=== PATIENT | female | born 1930 | race African-American/Black ===

== ENCOUNTER 2016-08-27 14:39 | Inpatient (IN) | payer MEDICAID, MEDICARE ==
[~2016-08-27] VITALS: Ht 142.2 cm; Wt 45.4 kg
[~2016-08-27 14:39] MED LIST: ACETAMINOPHEN325 M1 ORAL; ACIDOPHILUS PROB1 MG PO; ALPRAZOLAM0.5 M2 ORAL; AMBIEN5 MG ORAL; AMLODIPINE BES2.5 MG ORAL; AMLODIPINE BESY10 MG ORAL; AUGMENTIN 875-1 EAC1 GT; BACTRIM-DS1 EA ORAL; BENAZEPRIL HCL10 MG GT; BENAZEPRIL HCL10 MG ORAL; BIOTIN2500 MCG PO; CALCIUM 500 +1 EAC7 PO; CEFEPIME-D1 GM/50 ML IVPB; CIPRO500 MG PO; CRANBERRY 6,001 EACH PO; ENZYME DIGEST1 EACH PO; FERROUS SULFAT325 MG ORAL; GARLIC200 MG PO; IRON18 M1 PO; KEPPRA500 M3 ORAL; LEVAQUIN500 MG GT; LORAZEPAM1 MG ORAL; LUPRON DEPOT3.75 M1 IM; METRONIDAZOLE500 MG ORAL; MIRALAX17 GM ORAL; MULTIVITAMINS1 EA11 PO; NORCO 7.5-3251 EACH ORAL; NUTREN GT; OMEPRAZOLE20 M2 ORAL; PROMETHAZI6.25 MG/1 ORAL; PROTEIN POWDER454 GM PO; RANITIDINE HCL150 MG ORAL; SENNA LAXATIVE1 EAC1 PO; VANCOMYCIN1 GM/2502 IVPB; VICODIN ES 7.51 EACH ORAL; VITAMIN B12-FO1 EAC1 PO; VITAMIN C500 M1 ORAL; XANAX0.5 MG ORAL; ZINC50 MG ORAL; ZOLPIDEM TARTRAT5 MG ORAL; [UNRECOGNIZED DRUG - CODE] PO; [UNRECOGNIZED DRUG - OTHER] GT
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
[2016-08-27] MEDS ORDERED: DuoNeb 0.5-3(2.5)mg/3ml neb ONE (15:15)
[2016-08-27] MEDS ORDERED: DuoNeb 0.5-3(2.5)mg/3ml neb HHN ONE (15:30)
[2016-08-27 15:55] LABS: APPEARANCE,URINE SLIGHTLY CLOUDY; KETONES,URINE 1+ (NEGATIVE); LEUKOCYTE ESTERASE ,URINE 3+ (NEGATIVE); NITRITE,URINE POSITIVE (NEGATIVE); PH,URINE 5 (4.5-8.0); PROTEIN,URINE 2+ (NEGATIVE); UROBILINOGEN,URINE 1 MG/DL (0.0-1.0)
[2016-08-27] MEDS ORDERED: Heparin 2000 units/Ns 1000ml IV ONE (16:00)
[2016-08-27] MEDS ORDERED: Lidocaine 1% Plain 30 ml INJ ONE (16:00)
[2016-08-27 16:01] VITALS: BP 124/55
[2016-08-27 16:02] LABS: RBC,URINE 15-20 /HPF (0 - 2)
[2016-08-27 16:03] LABS: BACTERIA,URINE MANY /HPF; SQUAMOUS EPITHELIAL CELL,UR MANY /LPF (NONE/OCC); WBC,URINE 20-30 /HPF (0 - 2)
--- NOTE | 2016-08-27 16:58 | Diagnostic Imaging Report ---
Indication: Dyspnea Comparison: 04/13/16 A single view chest radiograph was obtained. Findings: No definite infiltrate or pulmonary vascular congestion identified. The heart is normal in size. The aorta is mildly enlarged consistent with atherosclerotic vascular disease. The bones are osteopenic. Impression: No acute disease
--- NOTE | 2016-08-27 16:58 | Diagnostic Imaging Report ---
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 The right upper extremity was prepped with alcohol. All elements of maximal sterile barrier technique were followed including usage of a cap, mask, sterile gown, sterile gloves, hand hygiene and a large sterile sheet. Sonographic evaluation of the upper extremity was performed demonstrating a patent and compressible basilic vein. Access was obtained under real-time ultrasound guidance and digital image was saved and archived. An .018 wire was introduced. Needle exchanged for a 5 [place] peel-away sheath. Measurements were obtained. A 5 [place] dual-lumen Power PICC line catheter was cut to 10 cm and introduced over the wire. Peel-away sheath and wire were removed.Catheter was secured to the skin using 2-0 Prolene suture. Both ports aspirate and flush easily. Fluoroscopic Images show distal tip in the right axillary vein. Total fluoroscopic time 1.3 minutes. Repeated attempts at passing the catheter beyond the axillary vein were unsuccessful. Impression: Successful placement of an upper extremity PICC line catheter within a peripheral vein. Catheter is cleared for peripheral use.
[2016-08-27 17:27] LABS: BASOPHILS % (AUTO) 0.7 % (0.0-2.0); EOSINOPHILS % (AUTO) 0.1 % (0.0-3.0); MEAN CORPUSCULAR HEMOGLOBIN 23.7 PG (27.0-31.0); MEAN CORPUSCULAR HGB CONC 28.7 G/DL (32.0-36.0); MEAN CORPUSCULAR VOLUME 83 FL (80-99); MEAN PLATELET VOLUME 9.2 FL (6.5-10.1); NEUTROPHILS % (AUTO) 81.1 % (45.0-75.0); PLATELET COUNT 156 K/UL (150-450); RED BLOOD COUNT 4.28 M/UL (4.20-5.40); RED CELL DISTRIBUTION WIDTH 13.2 % (11.6-14.8)
[2016-08-27 17:41] LABS: ALANINE AMINOTRANSFERASE 12 U/L (3-33); ALBUMIN/GLOBULIN RATIO 0.9 (1.0-2.7); ANION GAP 15 (5-15); ASPARTATE AMINO TRANSFERASE 17 U/L (5-40); CALCIUM 8.9 mg/dL (8.6-10.2); CARBON DIOXIDE 28 mEQ/L (20-30); CHLORIDE 99 mEQ/L (98-107); CREATININE 0.7 mg/dL (0.5-0.9); HEMOLYSIS 0; POTASSIUM 3.4 mEQ/L (3.4-4.9); SODIUM 142 mEQ/L (135-145); TOTAL PROTEIN 7.3 g/dL (6.6-8.7); TROPONIN I < 0.30 ng/mL (<=0.30)
[2016-08-27] MEDS ORDERED: Nitroglycerin Subl 0.4mg tab (Bottle Of 25) SL PRN (17:45)
[2016-08-27] MEDS ORDERED: Morphine Sulfate 2mg/ml Inj IVP PRN (17:45)
[2016-08-27] MEDS ORDERED: DuoNeb 0.5-3(2.5)mg/3ml neb HHN PRN (17:45)
[2016-08-27] MEDS ORDERED: Miralax 17gm pkt ORAL PRN (17:45)
[2016-08-27 17:51] LABS: CKMB < 1.5 ng/mL (< 3.8)
--- NOTE | 2016-08-27 19:08 | History and Physical ---
History of Present Illness General Date patient seen: Aug 27, 2016 Reason for Hospitalization: Flu Like Symptoms Present Illness HPI 86 female with end stage Alzheimers dementia, bed bound, debilitated, contracted, presented after increased shortness of breath. she had gradual onset of symptoms over the past few days. Patient had recently become in contact with somebody who had a respiratory illness. she was hypotensive and was diagnosed to have sepsis and admitted to [facility] for further care. Allergies: Coded Allergies: No Known Allergies (Unverified , 02/05/13) Medication History Scheduled Alprazolam (Alprazolam), 0.5 MG ORAL TID, (Reported) Amlodipine Besylate* (Amlodipine Besylate*), 10 MG ORAL DAILY, (Reported) Ascorbic Acid* (Vitamin C*), 500 MG ORAL DAILY, (Reported) Benazepril Hcl* (Benazepril Hcl*), 10 MG GT DAILY, (Reported) Biotin (Biotin), 10,000 MCG PO DAILY, (Reported) Calcium Carbonate/Vitamin D3 (Calcium 500 + Vit D3 400 Tab), 1 EACH PO DAILY, ( Reported) Cyanocobalamin/Folic Acid (Vitamin V63-Ujvqf Acid Tablet), 1 EACH PO DAILY, ( Reported) Enteral Nutrition Formula (Glucerna 1 Rodrigue), 250 ML GT DAILY, (Reported) Enzymes,Digestive (Enzyme Digest), 1 EACH PO DAILY, (Reported) Ferrous Sulfate* (Ferrous Sulfate*), 325 MG ORAL DAILY, (Reported) Garlic (Garlic), 200 MG PO DAILY, (Reported) Lactobacillus Acidophilus (Acidophilus Probiotic), 1 MG PO DAILY, (Reported) Levetiracetam (Levetiracetam), 250 MG ORAL Q12HR Lorazepam* (Lorazepam*), 1 MG ORAL THREE TIMES A DAY, (Reported) Magnesium Oxide/Mag Aa Chelate (Magnesium 300 Mg Capsule), 300 MG PO DAILY, ( Reported) Omeprazole (Omeprazole), MG ORAL DAILY, (Reported) Polyethylene Glycol* (Miralax*), 17 GM ORAL DAILY, (Reported) Protein Supplement (Protein Powder), 454 GM PO DAILY, (Reported) Ranitidine Hcl* (Zantac*), 150 MG ORAL BEDTIME Sennosides/Docusate Sodium (Senna Laxative Tablet), 2 EACH PO DAILY, (Reported) Zinc Gluconate (Zinc), 50 MG ORAL DAILY, (Reported) Zolpidem Tartrate* (Ambien*), 5 MG ORAL BEDTIME, (Reported) [super green powder], 1 SCOOP GT DAILY, (Reported) Scheduled PRN Alprazolam* (Xanax*), 0.5 MG ORAL PRN PRN for For Anxiety, (Reported) Hydrocodone Bit/Acetaminophen 7.5-325* ([place] 7.5-325*), 1 TAB ORAL Q6H PRN for For Pain, (Reported) Promethazine Hcl (Promethazine Hcl*), 5 ML ORAL Q6H PRN for Nausea & Vomiting, ( Reported) Zolpidem Tartrate* (Zolpidem Tartrate*), 5 MG ORAL BEDTIME PRN for Insomnia, ( Reported) Miscellaneous Medications Cranberry Conc/Ascorbic Acid (Cranberry 6,000 Mg Softgel), 1 EACH PO, (Reported) Multivitamin (Multivitamins), 1 EACH PO, (Reported) Discontinued Medications Acetaminophen* (Acetaminophen*), 650 MG ORAL Q4H PRN for fever Discontinued Reason: Therapy completed Amlodipine Besylate* (Amlodipine Besylate*), 2.5 MG ORAL DAILY, (Reported) Discontinued Reason: Therapy completed Amoxicillin/Potassium Clav 875-125* (Augmentin 875-125 Tablet*), 1 TAB GT TWICE A DAY Discontinued Reason: Therapy completed Benazepril Hcl* (Benazepril Hcl*), 10 MG ORAL DAILY, (Reported) Discontinued Reason: Therapy completed Ciprofloxacin* (Cipro*), 500 MG PO BID Discontinued Reason: Therapy completed Levofloxacin* (Levaquin*), 500 MG GT DAILY Discontinued Reason: Therapy completed Trimethoprim/Sulfamethoxazole (Bactrim Ds Tablet), 1 TAB ORAL TWICE A DAY Discontinued Reason: Therapy completed Patient History Healthcare decision maker MALLY MEEKS Resuscitation status Advanced Directive on File Yes Past Medical/Surgical History Past Medical/Surgical History: (1) 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, stage IV (3) PEG (percutaneous endoscopic gastrostomy) adjustment/replacement/removal (4) Alzheimer's dementia (5) Decubitus ulcer of lower back, stage 4 Review of Systems All Other Systems: negative except mentioned in HPI Physical Exam General Appearance: cachetic Lines, tubes and drains: peripheral, central line HEENT: normocephalic, atraumatic Neck: non-tender, normal alignment Respiratory/Chest: chest wall non-tender Cardiovascular/Chest: normal peripheral pulses Abdomen: normal bowel sounds Genitourinary/Rectal: normal genital exam Last 24 Hour Vital Signs Date Time Temp Pulse Resp B/P Pulse Ox O2 Delivery O2 Flow Rate FiO2 08/27/16 18:30 102.0 93 20 124/55 100 Room Air 21 08/27/16 16:20 93 20 Room Air 21 08/27/16 16:01 102.0 93 20 124/55 100 Room Air 08/27/16 15:23 81 18 Room Air 21 08/27/16 15:23 81 16 99 Room Air 21 08/27/16 15:23 21 08/27/16 15:07 97.3 88 16 124/71 99 Room Air Laboratory Tests Test 08/27/16 15:26 08/27/16 17:00 Urine Color Yellow Urine Appearance Slightly cloudy Urine pH 5 (4.5-8.0) Urine Specific [place] 1.010 (1.005-1.035) Urine Protein 2+ (NEGATIVE) H Urine Glucose (UA) Negative (NEGATIVE) Urine Ketones 1+ (NEGATIVE) H Urine Occult Blood 4+ (NEGATIVE) H Urine Nitrite Positive (NEGATIVE) H Urine Bilirubin Negative (NEGATIVE) Urine Urobilinogen 1 MG/DL (0.0-1.0) H Urine Leukocyte Esterase 3+ (NEGATIVE) H Urine RBC 15-20 /HPF (0 - 2) H Urine WBC 20-30 /HPF (0 - 2) H Urine Squamous Epithelial Cells Many /LPF (NONE/OCC) H Urine Bacteria Many /HPF (NONE) H White Blood Count 8.0 K/UL (4.8-10.8) Red Blood Count 4.28 M/UL (4.20-5.40) Hemoglobin 10.2 G/DL (12.0-16.0) L Hematocrit 35.4 % (37.0-47.0) L Mean Corpuscular Volume 83 FL (80-99) Mean Corpuscular Hemoglobin 23.7 PG (27.0-31.0) L Mean Corpuscular Hemoglobin Concent 28.7 G/DL (32.0-36.0) L Red Cell Distribution Width 13.2 % (11.6-14.8) Platelet Count 156 K/UL (150-450) Mean Platelet Volume 9.2 FL (6.5-10.1) Neutrophils (%) (Auto) 81.1 % (45.0-75.0) H Lymphocytes (%) (Auto) 13.0 % (20.0-45.0) L Monocytes (%) (Auto) 5.0 % (1.0-10.0) Eosinophils (%) (Auto) 0.1 % (0.0-3.0) Basophils (%) (Auto) 0.7 % (0.0-2.0) Sodium Level 142 mEQ/L (135-145) Potassium Level 3.4 mEQ/L (3.4-4.9) Chloride Level 99 mEQ/L (98-107) Carbon Dioxide Level 28 mEQ/L (20-30) Anion Gap 15 (5-15) Blood Urea Nitrogen 30 mg/dL (7-23) H Creatinine 0.7 mg/dL (0.5-0.9) Estimat Glomerular Filtration Rate mL/min (>60) Glucose Level 139 mg/dL (74-106) H Lactic Acid Level 1.70 mmol/L (0.66-2.22) Calcium Level 8.9 mg/dL (8.6-10.2) Total Bilirubin 0.2 mg/dL (0.0-1.2) Aspartate Amino Transf (AST/SGOT) 17 U/L (5-40) Alanine Aminotransferase (ALT/SGPT) 12 U/L (3-33) Alkaline Phosphatase 82 U/L (35-104) Total Creatine Kinase 70 U/L (26-140) Creatine Kinase MB < 1.5 ng/mL (< 3.8) Creatine Kinase MB Relative Index 2.1 Troponin I < 0.30 ng/mL (<=0.30) Pro-B-Type Natriuretic Peptide 185 pg/mL (0-450) Total Protein 7.3 g/dL (6.6-8.7) Albumin 3.5 g/dL (3.5-5.2) Globulin 3.8 g/dL Albumin/Globulin Ratio 0.9 (1.0-2.7) L Height (Feet): 4 Height (Inches): 8.00 Weight (Pounds): 100 Medications Current Medications Medications (Trade) Dose Ordered Sig/Marcelino Route PRN Reason Start Time Stop Time Status Last Admin Dose Admin Acetaminophen (Tylenol) 650 mg Q4H PRN ORAL fever 08/27/16 17:45 09/26/16 17:44 Albuterol/ Ipratropium 3 ml 3 ml EVERY 4 HOURS PRN HHN Shortness of Breath 08/27/16 17:45 09/01/16 17:44 Amlodipine Besylate (Norvasc) 10 mg DAILY ORAL 08/28/16 09:00 09/27/16 08:59 Cefepime HCl 2 gm/ Sodium Chloride 100 ml @ 200 mls/hr Q24H IV 08/27/16 20:00 09/03/16 19:59 Heparin Sodium (Porcine) (Heparin 5000 units/ml) 5,000 units EVERY 12 HOURS SUBQ 08/27/16 21:00 09/26/16 20:59 Levetiracetam (Keppra) 250 mg Q12HR ORAL 08/27/16 21:00 09/26/16 20:59 Morphine Sulfate (Morphine Sulfate) 2 mg EVERY 4 HOURS PRN IVP Moderate Pain (Pain Scale 4-6) 08/27/16 17:45 09/03/16 17:44 Nitroglycerin (Ntg) 0.4 mg Q5M PRN SL Prn Chest Pain 08/27/16 17:45 09/26/16 17:44 Ondansetron HCl (Zofran) 4 mg Q6H PRN IVP Nausea & Vomiting 08/27/16 17:45 09/26/16 17:44 Polyethylene Glycol (Miralax) 17 gm DAILYPRN PRN ORAL Constipation 08/27/16 17:45 09/26/16 17:44 Temazepam (Restoril) 15 mg HSPRN PRN ORAL Insomnia 08/27/16 17:45 09/03/16 17:44 Vancomycin HCl 1 ea 1 ea DAILY PRN MISC . 08/27/16 18:30 09/26/16 18:29 Vancomycin HCl/ Dextrose (Vancomycin/D5W 100ml) 100 ml @ 100 mls/hr Q24H IV 08/28/16 21:00 09/02/16 20:59 Vancomycin HCl/ Dextrose (Vancomycin/D5W 250ml) 250 ml @ 167 mls/hr ONCE ONCE IVPB 08/27/16 20:30 08/27/16 21:59 Assessment/Plan Problem List: (1) Shock ICD Codes: R57.9 - Shock SNOMED: 87988127 (2) WHITNEY (acute kidney injury) ICD Codes: N17.9 - Acute kidney failure, unspecified SNOMED: 57267757 (3) Contracture of joint of multiple sites ICD Codes: M24.50 - Contracture, unspecified joint SNOMED: 68174724, 666329251 (4) PEG (percutaneous endoscopic gastrostomy) adjustment/replacement/removal ICD Codes: Z43.1 - Encounter for attention to gastrostomy SNOMED: 556338398 (5) Alzheimer's dementia ICD Codes: F02.80 - Dementia in oth diseases classd elswhr w/o behavrl disturb ; G30.9 - Alzheimer's dementia SNOMED: 26217473 Qualifiers: Qualified Codes: G30.1 - Alzheimer's disease with late onset; F02.81 - Dementia in other diseases classified elsewhere with behavioral disturbance (6) Sacral decubitus ulcer, stage IV ICD Codes: L89.154 - Sacral decubitus ulcer, stage IV SNOMED: 241255203 (7) Sepsis ICD Codes: A41.9 - Sepsis SNOMED: 03577745 (8) Anemia ICD Codes: D64.9 - Anemia SNOMED: 788866671 Qualifiers: Assessment/Plan gardner culture iv abx check cultures wound care gtube feeding check electrolytes dvt prophylaxis TAMMY MARRERO Aug 27, 2016 19:08
[2016-08-27 20:00] VITALS: BP 138/67
[2016-08-27] MEDS: Heparin 5000 units/ml inj SUBQ SCH (21:25)
[2016-08-28] VITALS: BP 103/96
[2016-08-28 08:40] VITALS: BP 109/52
[2016-08-28 08:59] LABS: APPEARANCE,URINE SLIGHTLY CLOUDY; KETONES,URINE 1+ (NEGATIVE); LEUKOCYTE ESTERASE ,URINE 2+ (NEGATIVE); NITRITE,URINE POSITIVE (NEGATIVE); PH,URINE 5 (4.5-8.0); PROTEIN,URINE 2+ (NEGATIVE); UROBILINOGEN,URINE NORMAL MG/DL (0.0-1.0)
[2016-08-28] MEDS: Heparin 5000 units/ml inj SUBQ SCH ×2 (09:00→21:00)
[2016-08-28 09:11] LABS: ALANINE AMINOTRANSFERASE 11 U/L (3-33); ALBUMIN/GLOBULIN RATIO 0.9 (1.0-2.7); ANION GAP 10 (5-15); ASPARTATE AMINO TRANSFERASE 18 U/L (5-40); CALCIUM 7.9 mg/dL (8.6-10.2); CARBON DIOXIDE 29 mEQ/L (20-30); CHLORIDE 106 mEQ/L (98-107); CREATININE 0.6 mg/dL (0.5-0.9); HEMOLYSIS 8; SODIUM 145 mEQ/L (135-145); TOTAL PROTEIN 6.4 g/dL (6.6-8.7)
[2016-08-28 09:15] LABS: BASOPHILS % (AUTO) 0.5 % (0.0-2.0); EOSINOPHILS % (AUTO) 0.1 % (0.0-3.0); LYMPHOCYTES % (AUTO) 29.3 % (20.0-45.0); MEAN CORPUSCULAR HEMOGLOBIN 23.9 PG (27.0-31.0); MEAN CORPUSCULAR HGB CONC 29.7 G/DL (32.0-36.0); MEAN CORPUSCULAR VOLUME 80 FL (80-99); MEAN PLATELET VOLUME 10.5 FL (6.5-10.1); MONOCYTES % (AUTO) 5.2 % (1.0-10.0); NEUTROPHILS % (AUTO) 64.9 % (45.0-75.0); PLATELET COUNT 131 K/UL (150-450); RED CELL DISTRIBUTION WIDTH 12.7 % (11.6-14.8); WHITE BLOOD COUNT 8.1 K/UL (4.8-10.8)
[2016-08-28 10:19] LABS: BACTERIA,URINE FEW /HPF; SQUAMOUS EPITHELIAL CELL,UR FEW /LPF (NONE/OCC); WBC,URINE 15-20 /HPF (0 - 2)
[2016-08-28 12:31] VITALS: BP 110/47
--- NOTE | 2016-08-28 15:03 | Cardiology Report ---
APPROVED REPORT EKG Measurement Heart [id number] Normal sinus rhythm Minimal voltage criteria for LVH, may be normal variant Borderline ECG
[2016-08-28 16:00] VITALS: BP 120/60
--- NOTE | 2016-08-28 16:55 | Pulmonology Progress Note ---
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 (4) PEG (percutaneous endoscopic gastrostomy) adjustment/replacement/removal (5) Alzheimer's dementia (6) Sacral decubitus ulcer, stage IV (7) Sepsis (8) Anemia Assessment/Plan PLAN OF CARE Fluid recsucitation BP and BG tight control s/p IVF monitor renal parameters, lytes - stable avoid nephrotoxic abx ID follows blood cx preliminary negative, urine cx + Pseudomonas, Enterococci faecalis CXR negative for acute cardiopulmonary disease O2 HHN prn Subjective ROS Limited/Unobtainable: Yes Constitutional: Reports: fatigue Neurologic: Reports: confusion, weakness Musculoskeletal: Reports: pain, stiffness, swelling Allergies: Coded Allergies: No Known Allergies (Unverified , 02/05/13) Objective Last 24 Hour Vital Signs Date Time Temp Pulse Resp B/P Pulse Ox O2 Delivery O2 Flow Rate FiO2 08/28/16 16:00 99.3 91 20 120/60 Nasal Cannula 2.0 94 08/28/16 12:31 98.1 75 20 110/47 95 Nasal Cannula 2.0 08/28/16 09:00 92 20 Room Air 21 08/28/16 08:50 77 109/52 08/28/16 08:40 98.2 77 20 109/52 95 Nasal Cannula 2.0 08/28/16 08:00 76 08/28/16 04:00 73 08/28/16 01:28 98.2 08/28/16 00:00 100.9 94 16 103/96 96 Room Air 08/27/16 20:00 96.3 98 20 138/67 Room Air 08/27/16 20:00 90 08/27/16 19:30 96 20 Room Air 21 08/27/16 18:30 102.0 93 20 124/55 100 Room Air 21 Intake and Output 08/27/16 08/28/16 19:00 07:00 Intake Total 0 ml 20 ml Output Total 200 ml Balance 0 ml -180 ml Intake Oral 0 ml Free Water 20 ml Output Urine Total 200 ml General Appearance: no acute distress HEENT: normocephalic, atraumatic, PERRL Respiratory/Chest: chest wall non-tender, decreased breath sounds, accessory muscle use Breasts: no masses Cardiovascular: normal peripheral pulses, normal rate, regular rhythm, no JVD Abdomen: normal bowel sounds, soft, non tender, no organomegaly Genitourinary: normal external genitalia Extremities: no cyanosis Skin: rash, lesions, ulcers Neurologic/Psychiatric: match up person II-XII grossly normal, disoriented, depressed affect Microbiology Date/Time Source Procedure Growth Status 08/27/16 15:26 Urine,Clean Catch Urine Culture - Preliminary Resulted Laboratory Tests 08/27/16 17:00: White Blood Count 8.0, Red Blood Count 4.28, Hemoglobin 10.2L, Hematocrit 35.4L , Mean Corpuscular Volume 83, Mean Corpuscular Hemoglobin 23.7L, Mean Corpuscular Hemoglobin Concent 28.7L, Red Cell Distribution Width 13.2, Platelet Count 156, Mean Platelet Volume 9.2, Neutrophils (%) (Auto) 81.1H, Lymphocytes (%) (Auto) 13.0L, Monocytes (%) (Auto) 5.0, Eosinophils (%) (Auto) 0.1, Basophils (%) (Auto) 0.7, Sodium Level 142, Potassium Level 3.4, Chloride Level 99, Carbon Dioxide Level 28, Anion Gap 15, Blood Urea Nitrogen 30H, Creatinine 0.7, Estimat Glomerular Filtration Rate , Glucose Level 139H, Lactic Acid Level 1.70, Calcium Level 8.9, Total Bilirubin 0.2, Aspartate Amino Transf (AST/SGOT) 17, Alanine Aminotransferase (ALT/SGPT) 12, Alkaline Phosphatase 82, Total Creatine Kinase 70, Creatine Kinase MB < 1.5, Creatine Kinase MB Relative Index 2.1, Troponin I < 0.30, Pro-B-Type Natriuretic Peptide 185, Total Protein 7.3, Albumin 3.5, Globulin 3.8, Albumin/Globulin Ratio 0.9L 08/28/16 07:55: Urine Color Yellow, Urine Appearance Slightly cloudy, Urine pH 5, Urine Specific [place] 1.015, Urine Protein 2+H, Urine Glucose (UA) Negative, Urine Ketones 1+H, Urine Occult Blood 4+H, Urine Nitrite PositiveH, Urine Bilirubin Negative, Urine Urobilinogen Normal, Urine Leukocyte Esterase 2+H, Urine RBC 2- 4H, Urine WBC 15-20H, Urine Squamous Epithelial Cells Few, Urine Bacteria Few 08/28/16 08:30: White Blood Count 8.1, Red Blood Count 3.70L, Hemoglobin 8.9L, Hematocrit 29.8L , Mean Corpuscular Volume 80, Mean Corpuscular Hemoglobin 23.9L, Mean Corpuscular Hemoglobin Concent 29.7L, Red Cell Distribution Width 12.7, Platelet Count 131L, Mean Platelet Volume 10.5H, Neutrophils (%) (Auto) 64.9, Lymphocytes (%) (Auto) 29.3, Monocytes (%) (Auto) 5.2, Eosinophils (%) (Auto) 0.1, Basophils (%) (Auto) 0.5, Sodium Level 145, Potassium Level 4.0, Chloride Level 106, Carbon Dioxide Level 29, Anion Gap 10, Blood Urea Nitrogen 29H, Creatinine 0.6, Estimat Glomerular Filtration Rate , Glucose Level 96, Calcium Level 7.9L, Total Bilirubin 0.3, Aspartate Amino Transf (AST/SGOT) 18, Alanine Aminotransferase (ALT/SGPT) 11, Alkaline Phosphatase 65, Total Protein 6.4L, Albumin 3.1L, Globulin 3.3, Albumin/Globulin Ratio 0.9L Current Medications Medications (Trade) Dose Ordered Sig/Marcelino Route PRN Reason Start Time Stop Time Status Last Admin Dose Admin Acetaminophen (Tylenol) 650 mg Q4H PRN ORAL fever 08/27/16 17:45 09/26/16 17:44 08/28/16 00:29 Albuterol/ Ipratropium 3 ml 3 ml EVERY 4 HOURS PRN HHN Shortness of Breath 08/27/16 17:45 09/01/16 17:44 Amlodipine Besylate (Norvasc) 10 mg DAILY ORAL 08/28/16 09:00 09/27/16 08:59 Cefepime HCl/ Sodium Chloride (Maxipime/Sodium Chloride 100ml bag) 100 ml @ 200 mls/hr Q24H IV 08/27/16 20:00 09/03/16 19:59 08/27/16 21:21 Heparin Sodium (Porcine) (Heparin 5000 units/ml) 5,000 units EVERY 12 HOURS SUBQ 08/27/16 21:00 09/26/16 20:59 08/27/16 21:25 Levetiracetam (Keppra) 250 mg Q12HR ORAL 08/27/16 21:00 09/26/16 20:59 08/28/16 08:49 Morphine Sulfate (Morphine Sulfate) 2 mg EVERY 4 HOURS PRN IVP Moderate Pain (Pain Scale 4-6) 08/27/16 17:45 09/03/16 17:44 Nitroglycerin (Ntg) 0.4 mg Q5M PRN SL Prn Chest Pain 08/27/16 17:45 09/26/16 17:44 Ondansetron HCl (Zofran) 4 mg Q6H PRN IVP Nausea & Vomiting 08/27/16 17:45 09/26/16 17:44 Polyethylene Glycol (Miralax) 17 gm DAILYPRN PRN ORAL Constipation 08/27/16 17:45 09/26/16 17:44 Temazepam (Restoril) 15 mg HSPRN PRN ORAL Insomnia 08/27/16 17:45 09/03/16 17:44 Vancomycin HCl 1 ea 1 ea DAILY PRN MISC . 08/27/16 18:30 09/26/16 18:29 Vancomycin HCl/ Dextrose (Vancomycin/D5W 100ml) 100 ml @ 100 mls/hr Q24H IV 08/28/16 21:00 09/02/16 20:59 TAMMY MARRERO Aug 28, 2016 16:55
[2016-08-28 19:28] LABS: INR 1.2 (0.9-1.1); PROTHROMBIN TIME 12.4 SEC (9.30-11.50)
[2016-08-28 19:57] LABS: ALANINE AMINOTRANSFERASE 13 U/L (3-33); ALBUMIN/GLOBULIN RATIO 0.8 (1.0-2.7); ANION GAP 12 (5-15); ASPARTATE AMINO TRANSFERASE 22 U/L (5-40); CARBON DIOXIDE 27 mEQ/L (20-30); CHLORIDE 108 mEQ/L (98-107); CREATININE 0.5 mg/dL (0.5-0.9); LACTATE DEHYDROGENASE 146 U/L (135-230); PHOSPHORUS 2.4 mg/dL (2.5-4.8); POTASSIUM 3.5 mEQ/L (3.4-4.9); SODIUM 147 mEQ/L (135-145); TOTAL PROTEIN 6.6 g/dL (6.6-8.7); URIC ACID 5.4 mg/dL (3.0-7.5)
[2016-08-28 20:00] VITALS: BP 81/57
[2016-08-28 20:10] LABS: CORTISOL 12.7 ug/dL; FREE T3 1.7 pg/mL (2.3-4.2)
[2016-08-28 20:27] LABS: RETICULOCYTE COUNT 0.5 % (0.0-2.0)
[2016-08-28 20:46] LABS: BAND NEUTROPHILS % (MANUAL) 10 % (0-8); BASOPHILS % (MANUAL) 1 % (0-2); EOSINOPHILS % (MANUAL) 0 % (0-3); LYMPHOCYTES % (MANUAL) 46 % (20-45); NEUTROPHILS % (MANUAL) 30 % (45-75); PLATELET ESTIMATE DECREASED; TOTAL CELLS COUNTED 100
[2016-08-28 20:47] LABS: PATH BLOOD SMEAR/OMC SENT TO PATHOLOGIST; PLATELET MORPHOLOGY NORMAL
[2016-08-28] MEDS: Vancomycin 500mg/D5W 100ml IV SCH ×2 (22:04)
[2016-08-29 00:10] VITALS: BP 110/57
[2016-08-29 01:22] LABS: APPEARANCE,URINE CLEAR; KETONES,URINE NEGATIVE (NEGATIVE); LEUKOCYTE ESTERASE ,URINE NEGATIVE (NEGATIVE); NITRITE,URINE NEGATIVE (NEGATIVE); PH,URINE 7 (4.5-8.0); PROTEIN,URINE 2+ (NEGATIVE); UROBILINOGEN,URINE NORMAL MG/DL (0.0-1.0)
[2016-08-29 01:39] LABS: BACTERIA,URINE FEW /HPF; RBC,URINE TNTC /HPF (0 - 2); SQUAMOUS EPITHELIAL CELL,UR FEW /LPF (NONE/OCC); WBC,URINE 0-2 /HPF (0 - 2)
[2016-08-29 04:10] VITALS: BP 113/58
[2016-08-29 08:38] VITALS: BP 128/67
[2016-08-29 08:58] LABS: BASOPHILS % (AUTO) 0.8 % (0.0-2.0); EOSINOPHILS % (AUTO) 0.7 % (0.0-3.0); LYMPHOCYTES % (AUTO) 35.4 % (20.0-45.0); MEAN CORPUSCULAR HEMOGLOBIN 23.5 PG (27.0-31.0); MEAN CORPUSCULAR HGB CONC 28.7 G/DL (32.0-36.0); MEAN CORPUSCULAR VOLUME 82 FL (80-99); MEAN PLATELET VOLUME 10.5 FL (6.5-10.1); MONOCYTES % (AUTO) 4.7 % (1.0-10.0); NEUTROPHILS % (AUTO) 58.4 % (45.0-75.0); PLATELET COUNT 136 K/UL (150-450); RED BLOOD COUNT 4.21 M/UL (4.20-5.40); RED CELL DISTRIBUTION WIDTH 12.9 % (11.6-14.8); WHITE BLOOD COUNT 5.9 K/UL (4.8-10.8)
[2016-08-29] MEDS: Heparin 5000 units/ml inj SUBQ SCH ×3 (09:00→21:00)
[2016-08-29 11:54] LABS: IRON 17 ug/dL (37-145); TOTAL IRON BINDING CAPACITY 201 ug/dL (250-400)
[2016-08-29 12:03] VITALS: BP 145/75
--- NOTE | 2016-08-29 15:47 | Pulmonology Progress Note ---
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 (4) PEG (percutaneous endoscopic gastrostomy) adjustment/replacement/removal (5) Alzheimer's dementia (6) Sacral decubitus ulcer, stage IV (7) Sepsis (8) Anemia Assessment/Plan imrpoving gradually continue antibiotics IV fluids check cultures wound care tolerating feeding Subjective ROS Limited/Unobtainable: Yes Interval Events: looks comfortable Allergies: Coded Allergies: No Known Allergies (Unverified , 02/05/13) Objective Last 24 Hour Vital Signs Date Time Temp Pulse Resp B/P Pulse Ox O2 Delivery O2 Flow Rate FiO2 08/29/16 12:40 98.1 08/29/16 12:03 100.8 132 22 145/75 99 Nasal Cannula 2.0 08/29/16 10:04 100.8 08/29/16 09:45 98 20 Room Air 21 08/29/16 09:05 103 128/67 08/29/16 09:04 99.9 08/29/16 08:38 99.3 103 20 128/67 95 Nasal Cannula 2.0 08/29/16 08:00 95 08/29/16 04:10 98.1 82 20 113/58 99 Nasal Cannula 2.0 08/29/16 04:00 89 08/29/16 00:10 97.9 91 18 110/57 92 Room Air 08/29/16 00:00 95 08/28/16 20:00 97.9 62 18 81/57 Nasal Cannula 2.0 87 08/28/16 20:00 103 08/28/16 19:55 96 20 Room Air 21 08/28/16 16:00 99.3 91 20 120/60 Nasal Cannula 2.0 94 08/28/16 16:00 102 Intake and Output 08/28/16 08/29/16 19:00 07:00 Intake Total 595 ml Output Total 200 ml 700 ml Balance -200 ml -105 ml Free Water 50 ml IV Total 300 ml Tube Feeding 245 ml Output Urine Total 200 ml 700 ml General Appearance: cachetic HEENT: normocephalic, atraumatic Respiratory/Chest: chest wall non-tender, normal breath sounds Breasts: no masses Cardiovascular: normal peripheral pulses Abdomen: normal bowel sounds, soft, non tender Genitourinary: normal external genitalia Skin: no rash 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, no motor/sensory deficits Microbiology Date/Time Source Procedure Growth Status 08/27/16 17:00 Blood Blood Culture - Preliminary NO GROWTH AFTER 24 HOURS Resulted 08/27/16 16:45 Blood Blood Culture - Preliminary NO GROWTH AFTER 24 HOURS Resulted 08/27/16 17:30 Nasal Nares MRSA Culture - Final Staphylococcus Aureus - Mrsa Complete 08/28/16 07:55 Urine,Clean Catch Urine Culture - Preliminary Resulted 08/27/16 15:26 Urine,Clean Catch Urine Culture - Preliminary Gram Negative Bacillus 1 Resulted 08/27/16 17:30 Rectum VRE Culture - Final Complete Laboratory Tests 08/28/16 19:00: Erythrocyte Sedimentation Rate 109H, Reticulocyte Count 0.5, Prothrombin Time 12.4H, Prothromb Time International Ratio 1.2H, Activated Partial Thromboplast Time 30, Sodium Level 147H, Potassium Level 3.5, Chloride Level 108H, Carbon Dioxide Level 27, Anion Gap 12, Blood Urea Nitrogen 17, Creatinine 0.5, Estimat Glomerular Filtration Rate , Glucose Level 112H, Osmolality [Pending], Uric Acid 5.4, Calcium Level 8.0L, Phosphorus Level 2.4L, Magnesium Level 2.0, Iron Level 17L, Total Iron Binding Capacity 201L, Percent Iron Saturation 8L, Unsaturated Iron Binding 184, Total Bilirubin 0.2, Aspartate Amino Transf (AST/ SGOT) 22, Alanine Aminotransferase (ALT/SGPT) 13, Alkaline Phosphatase 68, Lactate Dehydrogenase 146, Total Creatine Kinase 85, Total Protein 6.6, Albumin 3.1L, Globulin 3.5, Albumin/Globulin Ratio 0.8L, Carcinoembryonic Antigen [ Pending], Vitamin B12 Level [Pending], Folate [Pending], Thyroid Stimulating Hormone (TSH) 0.570, Free Thyroxine 1.21, Free Triiodothyronine 1.7L, Cortisol 12.7 08/29/16 00:00: Urine Color Pale yellow, Urine Appearance Clear, Urine pH 7, Urine Specific Morley 1.010, Urine Protein 2+H, Urine Glucose (UA) Negative, Urine Ketones Negative, Urine Occult Blood 4+H, Urine Nitrite Negative, Urine Bilirubin Negative, Urine Urobilinogen Normal, Urine Leukocyte Esterase Negative, Urine RBC TntcH, Urine WBC 0-2, Urine Squamous Epithelial Cells Few, Urine Bacteria Few, Urine Eosinophils None seen, Urine Osmolality [Pending], Urine Random Sodium 152, Urine Random Chloride 140, Urine Potassium Timed 16 08/29/16 07:35: White Blood Count 5.9, Red Blood Count 4.21, Hemoglobin 9.9L, Hematocrit 34.5L, Mean Corpuscular Volume 82, Mean Corpuscular Hemoglobin 23.5L, Mean Corpuscular Hemoglobin Concent 28.7L, Red Cell Distribution Width 12.9, Platelet Count 136L , Mean Platelet Volume 10.5H, Neutrophils (%) (Auto) 58.4, Lymphocytes (%) (Auto ) 35.4, Monocytes (%) (Auto) 4.7, Eosinophils (%) (Auto) 0.7, Basophils (%) ( Auto) 0.8 Current Medications Medications (Trade) Dose Ordered Sig/Marcelino Route PRN Reason Start Time Stop Time Status Last Admin Dose Admin Acetaminophen (Tylenol) 650 mg Q4H PRN ORAL fever 08/27/16 17:45 09/26/16 17:44 08/29/16 09:05 Albuterol/ Ipratropium 3 ml 3 ml EVERY 4 HOURS PRN HHN Shortness of Breath 08/27/16 17:45 09/01/16 17:44 Amlodipine Besylate (Norvasc) 10 mg DAILY ORAL 08/28/16 09:00 09/27/16 08:59 08/29/16 09:05 Cefepime HCl/ Sodium Chloride (Maxipime/Sodium Chloride 100ml bag) 100 ml @ 200 mls/hr Q24H IV 08/27/16 20:00 09/03/16 19:59 08/28/16 20:54 Heparin Sodium (Porcine) (Heparin 5000 units/ml) 5,000 units EVERY 12 HOURS SUBQ 08/27/16 21:00 09/26/16 20:59 08/27/16 21:25 Levetiracetam (Keppra) 250 mg Q12HR ORAL 08/27/16 21:00 09/26/16 20:59 08/29/16 09:05 Morphine Sulfate (Morphine Sulfate) 2 mg EVERY 4 HOURS PRN IVP Moderate Pain (Pain Scale 4-6) 08/27/16 17:45 09/03/16 17:44 Nitroglycerin (Ntg) 0.4 mg Q5M PRN SL Prn Chest Pain 08/27/16 17:45 09/26/16 17:44 Ondansetron HCl (Zofran) 4 mg Q6H PRN IVP Nausea & Vomiting 08/27/16 17:45 09/26/16 17:44 Polyethylene Glycol (Miralax) 17 gm DAILYPRN PRN ORAL Constipation 08/27/16 17:45 09/26/16 17:44 Temazepam (Restoril) 15 mg HSPRN PRN ORAL Insomnia 08/27/16 17:45 09/03/16 17:44 Vancomycin HCl 1 ea 1 ea DAILY PRN MISC . 08/27/16 18:30 09/26/16 18:29 Vancomycin HCl/ Dextrose (Vancomycin/D5W 100ml) 100 ml @ 100 mls/hr Q24H IV 08/28/16 21:00 09/02/16 20:59 08/28/16 22:04 TAMMY MARRERO Aug 29, 2016 15:47
[2016-08-29 16:00] VITALS: BP 114/66
[2016-08-29 20:00] VITALS: BP 114/58
--- NOTE | 2016-08-29 20:36 | Consultation ---
Consult Note Consult Note ID Dic # [id number] OBI MONTEIRO M.D. Aug 29, 2016 20:36
[2016-08-29] MEDS: Vancomycin 500mg/D5W 100ml IV SCH ×2 (22:05)
--- NOTE | 2016-08-29 23:48 | Consultation ---
DATE OF CONSULTATION: 08/29/2016 INFECTIOUS DISEASE CONSULTATION: CONSULTING PHYSICIAN: Sim Bhatt M.D REFERRING PHYSICIAN: Ev Manzo M.D. REASON FOR CONSULTATION: Evaluation of the patient for sepsis, pneumonia and antibiotic management. HISTORY OF PRESENT ILLNESS: The patient is an 86-year-old female with multiple medical problems, who was brought to this hospital because of shortness of breath and sepsis. The patient has been started on IV antibiotics. Infectious Disease consultation has been requested for further evaluation of the patient and antibiotic management. PAST MEDICAL HISTORY: Significant for: 1. Dementia. 2. Parkinson disease. 3. Dysphagia status post PEG. 4. Hypertension. 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 6. Anemia. ALLERGIES: No known drug allergies. MEDICATIONS: IV vancomycin and cefepime. FAMILY HISTORY: Noncontributory. REVIEW OF SYSTEMS: Unobtainable. PHYSICAL EXAMINATION: VITAL SIGNS: Temperature is 100.8 degrees, T-max 102 degrees, pulse 86, respiratory rate 18, and blood pressure 114/66. HEENT: No pale conjunctivae. No icterus. Mouth, no thrush. NECK: Supple. CHEST: both lungs. HEART: S1 and S2. ABDOMEN: Soft. EXTREMITIES: The patient has amputation of the left hand. NEUROLOGIC: Awake. LABORATORY AND DIAGNOSTIC DATA: White blood cell is 5.9, hemoglobin 9.9, and platelets 136,000. UA shows too numerous to count red blood cells and 0-2 white blood cells. BUN is 17 and creatinine 0.5. ALT, AST, and alkaline phosphatase are within normal range. Hepatitis serology for A and C is negative as of 19 months ago. Urine culture is pending. Blood culture is pending. Chest x-ray, no acute process. ASSESSMENT: The patient is an 86-year-old female with no medical problems, was admitted to this medical center with a fever source, probably urinary tract infection and also pneumonia is possible (despite of the unremarkable chest x-ray) The patient would benefit from broad-spectrum antibiotics till we get further information from the cultures. PLAN: 1. We will continue the patient on vancomycin and cefepime. 2. Monitor CBC. 3. Monitor BMP. 4. Monitor cultures (blood and urine). 5. Monitor the patient's clinical course, laboratories, and cultures, and based on those, we will do further recommendations. Thank you, Dr. Manzo for allowing me to participate in the care of this patient. I will follow the patient with you. Sim Bhatt M.D. DR: Nithin JOB#: [id number] CC:
[2016-08-30] VITALS: BP 164/84
[2016-08-30 04:00] VITALS: BP 102/46
[2016-08-30 06:59] LABS: BASOPHILS % (AUTO) 0.3 % (0.0-2.0); EOSINOPHILS % (AUTO) 0.1 % (0.0-3.0); LYMPHOCYTES % (AUTO) 32.4 % (20.0-45.0); MEAN CORPUSCULAR HEMOGLOBIN 23.6 PG (27.0-31.0); MEAN CORPUSCULAR HGB CONC 28.9 G/DL (32.0-36.0); MEAN CORPUSCULAR VOLUME 82 FL (80-99); MEAN PLATELET VOLUME 10.2 FL (6.5-10.1); MONOCYTES % (AUTO) 3.2 % (1.0-10.0); PLATELET COUNT 130 K/UL (150-450); RED CELL DISTRIBUTION WIDTH 12.7 % (11.6-14.8); WHITE BLOOD COUNT 6.2 K/UL (4.8-10.8)
[2016-08-30 07:18] LABS: INR 1.1 (0.9-1.1); PROTHROMBIN TIME 11.2 SEC (9.30-11.50)
[2016-08-30 07:27] LABS: ALANINE AMINOTRANSFERASE 16 U/L (3-33); ALBUMIN/GLOBULIN RATIO 0.6 (1.0-2.7); ANION GAP 15 (5-15); ASPARTATE AMINO TRANSFERASE 26 U/L (5-40); CALCIUM 8.4 mg/dL (8.6-10.2); CARBON DIOXIDE 25 mEQ/L (20-30); CHLORIDE 104 mEQ/L (98-107); CREATININE 0.5 mg/dL (0.5-0.9); HEMOLYSIS 10; MAGNESIUM 1.8 mg/dL (1.7-2.5); PHOSPHORUS 3.8 mg/dL (2.5-4.8); POTASSIUM 3.5 mEQ/L (3.4-4.9); SODIUM 144 mEQ/L (135-145); TOTAL PROTEIN 7.1 g/dL (6.6-8.7)
[2016-08-30 08:40] VITALS: BP 122/63
[2016-08-30] MEDS: Heparin 5000 units/ml inj SUBQ SCH ×2 (09:00→21:00)
[2016-08-30 12:00] VITALS: BP 106/57
--- NOTE | 2016-08-30 13:19 | Infectious Diseases Prog Note ---
Assessment/Plan Assessment/Plan A: The patient is an 86-year-old female Sepsis no evidence of Pneumonia Cxray : NAPD Probable UTI UCx: PSA and Strp ( ro VRE ) PICC 08/27 Dementia. Parkinson disease. Dysphagia status post PEG HTN History of amputation of the left arm. Anemia PLAN: Continue the patient on vancomycin and cefepime d# 2 Monitor CBC Monitor BMP. Monitor cultures (blood and urine) Subjective Constitutional: Reports: fever Allergies: Coded Allergies: No Known Allergies (Unverified , 02/05/13) Objective Vital Signs Last 24 Hour Vital Signs Date Time Temp Pulse Resp B/P Pulse Ox O2 Delivery O2 Flow Rate FiO2 08/30/16 09:32 77 122/63 08/30/16 08:40 98.2 77 20 122/63 100 Nasal Cannula 2.0 08/30/16 07:00 78 18 Room Air 21 08/30/16 04:00 98.4 66 20 102/46 98 Room Air 08/30/16 04:00 68 08/30/16 01:57 99.7 08/30/16 00:00 101.5 86 20 164/84 96 08/30/16 00:00 78 08/29/16 21:35 110 18 Room Air 21 08/29/16 20:00 100.0 111 20 114/58 Nasal Cannula 08/29/16 20:00 112 08/29/16 16:00 88 08/29/16 16:00 97.9 147 20 114/66 Nasal Cannula 2.0 90 Height (Feet): 4 Height (Inches): 8.00 Weight (Pounds): 100 HEENT: atraumatic Respiratory/Chest: lungs clear Cardiovascular: regular rhythm Abdomen: no organomegaly Extremities: no cyanosis Microbiology Date/Time Source Procedure Growth Status 08/27/16 17:00 Blood Blood Culture - Preliminary NO GROWTH AFTER 48 HOURS Resulted 08/27/16 16:45 Blood Blood Culture - Preliminary NO GROWTH AFTER 48 HOURS Resulted 08/27/16 17:30 Nasal Nares MRSA Culture - Final Staphylococcus Aureus - Mrsa Complete 08/28/16 07:55 Urine,Clean Catch Urine Culture - Preliminary Streptococcus Species Resulted 08/27/16 15:26 Urine,Clean Catch Urine Culture - Preliminary Pseudomonas Aeruginosa Streptococcus Species Resulted 08/27/16 17:30 Rectum VRE Culture - Final Complete Laboratory Tests Test 08/30/16 06:00 White Blood Count 6.2 K/UL (4.8-10.8) Red Blood Count 4.10 M/UL (4.20-5.40) L Hemoglobin 9.7 G/DL (12.0-16.0) L Hematocrit 33.5 % (37.0-47.0) L Mean Corpuscular Volume 82 FL (80-99) Mean Corpuscular Hemoglobin 23.6 PG (27.0-31.0) L Mean Corpuscular Hemoglobin Concent 28.9 G/DL (32.0-36.0) L Red Cell Distribution Width 12.7 % (11.6-14.8) Platelet Count 130 K/UL (150-450) L Mean Platelet Volume 10.2 FL (6.5-10.1) H Neutrophils (%) (Auto) 64.0 % (45.0-75.0) Lymphocytes (%) (Auto) 32.4 % (20.0-45.0) Monocytes (%) (Auto) 3.2 % (1.0-10.0) Eosinophils (%) (Auto) 0.1 % (0.0-3.0) Basophils (%) (Auto) 0.3 % (0.0-2.0) Prothrombin Time 11.2 SEC (9.30-11.50) Prothromb Time International Ratio 1.1 (0.9-1.1) Activated Partial Thromboplast Time 29 SEC (23-33) Sodium Level 144 mEQ/L (135-145) Potassium Level 3.5 mEQ/L (3.4-4.9) Chloride Level 104 mEQ/L (98-107) Carbon Dioxide Level 25 mEQ/L (20-30) Anion Gap 15 (5-15) Blood Urea Nitrogen 15 mg/dL (7-23) Creatinine 0.5 mg/dL (0.5-0.9) Estimat Glomerular Filtration Rate mL/min (>60) Glucose Level 156 mg/dL (74-106) H Calcium Level 8.4 mg/dL (8.6-10.2) L Phosphorus Level 3.8 mg/dL (2.5-4.8) Magnesium Level 1.8 mg/dL (1.7-2.5) Total Bilirubin 0.3 mg/dL (0.0-1.2) Aspartate Amino Transf (AST/SGOT) 26 U/L (5-40) Alanine Aminotransferase (ALT/SGPT) 16 U/L (3-33) Alkaline Phosphatase 79 U/L (35-104) Total Protein 7.1 g/dL (6.6-8.7) Albumin 2.9 g/dL (3.5-5.2) L Globulin 4.2 g/dL Albumin/Globulin Ratio 0.6 (1.0-2.7) L Current Medications Medications (Trade) Dose Ordered Sig/Marcelino Route PRN Reason Start Time Stop Time Status Last Admin Dose Admin Acetaminophen (Tylenol) 650 mg Q4H PRN ORAL fever 08/27/16 17:45 09/26/16 17:44 08/30/16 00:58 Albuterol/ Ipratropium 3 ml 3 ml EVERY 4 HOURS PRN HHN Shortness of Breath 08/27/16 17:45 09/01/16 17:44 Amlodipine Besylate (Norvasc) 10 mg DAILY ORAL 08/28/16 09:00 09/27/16 08:59 08/30/16 09:32 Cefepime HCl/ Sodium Chloride (Maxipime/Sodium Chloride 100ml bag) 100 ml @ 200 mls/hr Q24H IV 08/27/16 20:00 09/03/16 19:59 08/29/16 19:55 Heparin Sodium (Porcine) (Heparin 5000 units/ml) 5,000 units EVERY 12 HOURS SUBQ 08/27/16 21:00 09/26/16 20:59 08/27/16 21:25 Levetiracetam (Keppra) 250 mg Q12HR ORAL 08/27/16 21:00 09/26/16 20:59 08/30/16 09:32 Morphine Sulfate (Morphine Sulfate) 2 mg EVERY 4 HOURS PRN IVP Moderate Pain (Pain Scale 4-6) 08/27/16 17:45 09/03/16 17:44 Nitroglycerin (Ntg) 0.4 mg Q5M PRN SL Prn Chest Pain 08/27/16 17:45 09/26/16 17:44 Ondansetron HCl (Zofran) 4 mg Q6H PRN IVP Nausea & Vomiting 08/27/16 17:45 09/26/16 17:44 Polyethylene Glycol (Miralax) 17 gm DAILYPRN PRN ORAL Constipation 08/27/16 17:45 09/26/16 17:44 Temazepam (Restoril) 15 mg HSPRN PRN ORAL Insomnia 08/27/16 17:45 09/03/16 17:44 Vancomycin HCl 1 ea 1 ea DAILY PRN MISC . 08/27/16 18:30 09/26/16 18:29 Vancomycin HCl/ Dextrose (Vancomycin/D5W 100ml) 100 ml @ 100 mls/hr Q24H IV 08/28/16 21:00 09/02/16 20:59 08/29/16 22:05 OBI MONTEIRO M.D. Aug 30, 2016 13:19
--- NOTE | 2016-08-30 15:03 | Pulmonology Progress Note ---
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 (4) PEG (percutaneous endoscopic gastrostomy) adjustment/replacement/removal (5) Alzheimer's dementia (6) Sacral decubitus ulcer, stage IV (7) Sepsis (8) Anemia Assessment/Plan heart rat lower imrpoving gradually continue antibiotics IV fluids check cultures wound care tolerating feeding Subjective ROS Limited/Unobtainable: Yes Interval Events: awake, looks comfortable Constitutional: Reports: no symptoms HEENT: Repors: no symptoms Allergies: Coded Allergies: No Known Allergies (Unverified , 02/05/13) Objective Last 24 Hour Vital Signs Date Time Temp Pulse Resp B/P Pulse Ox O2 Delivery O2 Flow Rate FiO2 08/30/16 12:00 97.1 85 20 106/57 100 Nasal Cannula 2.0 08/30/16 12:00 78 08/30/16 09:32 77 122/63 08/30/16 08:40 98.2 77 20 122/63 100 Nasal Cannula 2.0 08/30/16 08:00 65 08/30/16 07:00 78 18 Room Air 21 08/30/16 04:00 98.4 66 20 102/46 98 Room Air 08/30/16 04:00 68 08/30/16 01:57 99.7 08/30/16 00:00 101.5 86 20 164/84 96 08/30/16 00:00 78 08/29/16 21:35 110 18 Room Air 21 08/29/16 20:00 100.0 111 20 114/58 Nasal Cannula 08/29/16 20:00 112 08/29/16 16:00 88 08/29/16 16:00 97.9 147 20 114/66 Nasal Cannula 2.0 90 Intake and Output 08/29/16 08/30/16 19:00 07:00 Intake Total 190 ml Output Total 400 ml 900 ml Balance -400 ml -710 ml Free Water 50 ml Tube Feeding 140 ml Output Urine Total 400 ml 900 ml General Appearance: WD/WN HEENT: normocephalic, atraumatic Respiratory/Chest: chest wall non-tender, lungs clear Cardiovascular: normal peripheral pulses, normal rate Abdomen: normal bowel sounds, soft, non tender 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 Microbiology Date/Time Source Procedure Growth Status 08/27/16 17:00 Blood Blood Culture - Preliminary NO GROWTH AFTER 48 HOURS Resulted 08/27/16 16:45 Blood Blood Culture - Preliminary NO GROWTH AFTER 48 HOURS Resulted 08/27/16 17:30 Nasal Nares MRSA Culture - Final Staphylococcus Aureus - Mrsa Complete 08/28/16 07:55 Urine,Clean Catch Urine Culture - Preliminary Streptococcus Species Resulted 08/27/16 15:26 Urine,Clean Catch Urine Culture - Preliminary Pseudomonas Aeruginosa Streptococcus Species Resulted 08/27/16 17:30 Rectum VRE Culture - Final Complete Laboratory Tests 08/30/16 06:00: White Blood Count 6.2, Red Blood Count 4.10L, Hemoglobin 9.7L, Hematocrit 33.5L , Mean Corpuscular Volume 82, Mean Corpuscular Hemoglobin 23.6L, Mean Corpuscular Hemoglobin Concent 28.9L, Red Cell Distribution Width 12.7, Platelet Count 130L, Mean Platelet Volume 10.2H, Neutrophils (%) (Auto) 64.0, Lymphocytes (%) (Auto) 32.4, Monocytes (%) (Auto) 3.2, Eosinophils (%) (Auto) 0.1, Basophils (%) (Auto) 0.3, Prothrombin Time 11.2, Prothromb Time International Ratio 1.1, Activated Partial Thromboplast Time 29, Sodium Level 144, Potassium Level 3.5, Chloride Level 104, Carbon Dioxide Level 25, Anion Gap 15, Blood Urea Nitrogen 15, Creatinine 0.5, Estimat Glomerular Filtration Rate , Glucose Level 156H, Calcium Level 8.4L, Phosphorus Level 3.8, Magnesium Level 1.8, Total Bilirubin 0.3, Aspartate Amino Transf (AST/SGOT) 26, Alanine Aminotransferase (ALT/SGPT) 16, Alkaline Phosphatase 79, Total Protein 7.1, Albumin 2.9L, Globulin 4.2, Albumin/Globulin Ratio 0.6L Current Medications Medications (Trade) Dose Ordered Sig/Marcelino Route PRN Reason Start Time Stop Time Status Last Admin Dose Admin Acetaminophen (Tylenol) 650 mg Q4H PRN ORAL fever 08/27/16 17:45 09/26/16 17:44 08/30/16 00:58 Albuterol/ Ipratropium 3 ml 3 ml EVERY 4 HOURS PRN HHN Shortness of Breath 08/27/16 17:45 09/01/16 17:44 Amlodipine Besylate (Norvasc) 10 mg DAILY ORAL 08/28/16 09:00 09/27/16 08:59 08/30/16 09:32 Cefepime HCl/ Sodium Chloride (Maxipime/Sodium Chloride 100ml bag) 100 ml @ 200 mls/hr Q24H IV 08/27/16 20:00 09/03/16 19:59 08/29/16 19:55 Heparin Sodium (Porcine) (Heparin 5000 units/ml) 5,000 units EVERY 12 HOURS SUBQ 08/27/16 21:00 09/26/16 20:59 08/27/16 21:25 Levetiracetam (Keppra) 250 mg Q12HR ORAL 08/27/16 21:00 09/26/16 20:59 08/30/16 09:32 Morphine Sulfate (Morphine Sulfate) 2 mg EVERY 4 HOURS PRN IVP Moderate Pain (Pain Scale 4-6) 08/27/16 17:45 09/03/16 17:44 Nitroglycerin (Ntg) 0.4 mg Q5M PRN SL Prn Chest Pain 08/27/16 17:45 09/26/16 17:44 Ondansetron HCl (Zofran) 4 mg Q6H PRN IVP Nausea & Vomiting 08/27/16 17:45 09/26/16 17:44 Polyethylene Glycol (Miralax) 17 gm DAILYPRN PRN ORAL Constipation 08/27/16 17:45 09/26/16 17:44 Temazepam (Restoril) 15 mg HSPRN PRN ORAL Insomnia 08/27/16 17:45 09/03/16 17:44 Vancomycin HCl 1 ea 1 ea DAILY PRN MISC . 08/27/16 18:30 09/26/16 18:29 Vancomycin HCl/ Dextrose (Vancomycin/D5W 100ml) 100 ml @ 100 mls/hr Q24H IV 08/28/16 21:00 09/02/16 20:59 08/29/16 22:05 TAMMY MARRERO Aug 30, 2016 15:02
[2016-08-30] MEDS ORDERED: Tubing IV Secondary IV ONE (15:15)
[2016-08-30] MEDS ORDERED: Sterile Water Irrig 1000ml IRRIG ONE (15:15)
[2016-08-30 16:00] VITALS: BP 97/43
[2016-08-30] MEDS ORDERED: Nitroglycerin Subl 0.4mg tab (Bottle Of 25) SL PRN (18:00)
[2016-08-30 20:00] VITALS: BP 131/50
--- NOTE | 2016-08-30 20:36 | Wound Care Consultation ---
Wound Assessment Wound Assessment #1: Wound Present on Admission: Yes New Wound: No Status Change of Wound: No Wound Location Body Site Modif: mid Wound Location Body Site: sacral Wound Type: pressure ulcer Abiola Test: Does not Abiola Wound Thickness: Full Thickness Wound Length: 6.5 Wound Width: 8.0 Wound Depth: utd Percent of Wound Loyal/Red: 100 Wound Drainage Amount: None Wound Drainage Odor: None/Absent Tissue Surrounding Wound: Erythemic Wound General Appearance: Reddened Wound Assessment #2: Wound Number: #2 Wound Present on Admission: Yes New Wound: No Status Change of Wound: No Wound Location Body Site Modif: posterior Wound Location Body Site: back Wound Type: pressure ulcer Abiola Test: Does not Abiola Pressure Ulcer Stage: deep tissue injury Wound Thickness: Full Thickness Wound Length: 4.5 Wound Width: 4.5 Wound Depth: utd Percent of Wound Purple/Maroon: 100 Wound Drainage Amount: None Wound Drainage Odor: None/Absent Tissue Surrounding Wound: Erythemic Wound General Appearance: Reddened Wound Assessment #3: Wound Number: #3 Wound Present on Admission: Yes New Wound: No Status Change of Wound: No Wound Location Body Site Modif: right, lateral Wound Location Body Site: malleolus/ankle Wound Type: pressure ulcer Abiola Test: Does not Abiola Pressure Ulcer Stage: deep tissue injury Wound Thickness: Full Thickness Wound Length: 2.0 Wound Width: 2.0 Wound Depth: utd Percent of Wound Purple/Maroon: 100 Wound Drainage Amount: None Wound Drainage Odor: None/Absent Tissue Surrounding Wound: Intact Wound General Appearance: Reddened Wound Assessment #4: Wound Number: #4 Wound Present on Admission: Yes New Wound: No Status Change of Wound: No Wound Location Body Site Modif: right, lateral Wound Location Body Site: foot Wound Type: pressure ulcer Abiola Test: Does not Abiola Pressure Ulcer Stage: IV/unstageable Wound Thickness: Full Thickness Wound Length: 2.0 Wound Width: 2.0 Wound Depth: utd Percent of Wound Bed Yellow/Wh: 100 Wound Drainage Amount: None Wound Drainage Odor: None/Absent Tissue Surrounding Wound: Intact Wound General Appearance: Asymptomatic Wound Assessment #5: Wound Number: #5 Wound Present on Admission: Yes New Wound: No Status Change of Wound: No Wound Location Body Site Modif: left, right Wound Location Body Site: buttocks Wound Type: pressure ulcer - fulll thickness scar tissue Abiola Test: Does not Abiola Wound Thickness: Full Thickness Wound Drainage Amount: None Wound Drainage Odor: None/Absent Tissue Surrounding Wound: Erythemic Wound General Appearance: Asymptomatic, Reddened Wound Assessment #6: Wound Number: #6 Wound Present on Admission: Yes New Wound: No Status Change of Wound: No Wound Location Body Site Modif: left, medial Wound Location Body Site: foot Wound Type: pressure ulcer Abiola Test: Does not Abiola Pressure Ulcer Stage: deep tissue injury Wound Thickness: Full Thickness Wound Length: 2.0 Wound Width: 2.0 Wound Depth: utd Percent of Wound Purple/Maroon: 100 Wound Drainage Amount: None Wound Drainage Odor: None/Absent Tissue Surrounding Wound: Erythemic Wound General Appearance: Reddened Wound Assessment #7: Wound Number: #7 Wound Present on Admission: Yes New Wound: No Status Change of Wound: No Wound Location Body Site Modif: right Wound Location Body Site: ear Wound Type: pressure ulcer Abiola Test: Does not Abiola Pressure Ulcer Stage: IV/unstageable Wound Thickness: Full Thickness Wound Length: 2.5 Wound Width: 0.8 Wound Depth: utd Percent of Wound Black/Brown: 100 Wound Drainage Amount: None Wound Drainage Odor: None/Absent Tissue Surrounding Wound: Erythemic Wound Comment This Pt came with multiple full thickness scar tissue on both right and left buttocks, DTI on back area, DTI left medial foot and DTI Right malleolus, right ear with stage IV pressure ulcer. Pt contracted on upper and lower extremities. Recommendation -Keep clean and dry -Turn and reposition -Optimize nutrition -Low air loss overlay mattress -Assess and f/u accordingly for any changes -Offload both heels -Heel protector on both heels -Local wound care with application of skin barrier creams ANGIE BENAVIDES RN Aug 30, 2016 20:36
[2016-08-30] MEDS ORDERED: DuoNeb 0.5-3(2.5)mg/3ml neb HHN PRN (21:00)
[2016-08-30] MEDS ORDERED: Morphine Sulfate 2mg/ml Inj IVP PRN (21:00)
[2016-08-30] MEDS: Vancomycin 500mg/D5W 100ml IV SCH ×2 (22:55)
[2016-08-31] VITALS (7 sets, daily range): BP systolic 93–144; BP diastolic 40–74
[2016-08-31] MEDS: Heparin 5000 units/ml inj SUBQ SCH ×2 (08:42→21:00)
--- NOTE | 2016-08-31 09:07 | Pulmonology Progress Note ---
Assessment/Plan Assessment/Plan ASSESSMENT WHITNEY 2 to dehydration -resolved UTI HTN anemia dysphagia, G tub Alzheimer dementia sacral decub st 4- POA seizure disorder functional quadriplegia PLAN OF CARE MS floor s/p IVF monitor renal parameters, lytes -stable avoid nephrotoxic abx ID follows blood cx preliminary negative, urine cx + Pseudomonas, Enterococci faucalis CXR negative for acute cardiopulmonary disease O2 HHN prn BP management with CCB, optimize as needed stable monitor HH, iron panel with low iron strict aspiration precautions, GT feeding, monitor tolerance seizure precautions, continue Keppra wound care as per wound care nurse recommendations, Bowel regimen DVT, GI prophylaxis case discussed and evaluated by supervising physician Subjective Allergies: Coded Allergies: No Known Allergies (Unverified , 02/05/13) Subjective afebrile, no leucocytosis renal parameters down to normal on O2 via NC, sat stable, no signs of respiratory distress Objective Last 24 Hour Vital Signs Date Time Temp Pulse Resp B/P Pulse Ox O2 Delivery O2 Flow Rate FiO2 08/31/16 08:41 90 144/74 08/31/16 08:34 97.8 90 18 144/74 97 Nasal Cannula 2.0 08/31/16 04:00 98.2 67 20 127/54 100 Room Air 08/31/16 00:00 97.9 70 20 109/72 99 Nasal Cannula 2.0 08/30/16 22:35 70 18 08/30/16 20:00 98.8 128 18 131/50 95 Nasal Cannula 2.0 08/30/16 16:00 99.1 70 13 97/43 97 Nasal Cannula 2.0 08/30/16 12:00 97.1 85 20 106/57 100 Nasal Cannula 2.0 08/30/16 12:00 78 08/30/16 09:32 77 122/63 Intake and Output 08/30/16 08/31/16 19:00 07:00 Intake Total 370 ml 610 ml Output Total 150 ml 100 ml Balance 220 ml 510 ml Free Water 30 ml 60 ml Tube Feeding 340 ml 550 ml Output Urine Total 150 ml 100 ml General Appearance: cachetic, other - frail, elderly, nonverbal, chronically ill looking bedridden female in NAD HEENT: normocephalic, atraumatic, other - NC on Respiratory/Chest: lungs clear - with moderate air entry , no respiratory distress, no accessory muscle use Cardiovascular: normal rate, no JVD Abdomen: normal bowel sounds, soft, non tender, other - G tube Genitourinary: other - Moreno Extremities: no edema, other - R arm below elbow amputtation Skin: other - st 4 sacral and multiple skin breakdonw, see pictures Neurologic/Psychiatric: abnormal gait - bedridden, other - nonverbal, contracted, Laboratory Tests 08/30/16 20:15: Vancomycin Level Trough 4.4L Current Medications Medications (Trade) Dose Ordered Sig/Marcelino Route PRN Reason Start Time Stop Time Status Last Admin Dose Admin Acetaminophen (Tylenol) 650 mg Q4H PRN ORAL fever 08/30/16 21:45 09/29/16 21:44 Albuterol/ Ipratropium (DuoNeb 0.5-3(2.5)mg/3ml) 3 ml EVERY 4 HOURS PRN HHN Shortness of Breath 08/30/16 21:00 09/04/16 20:59 Amlodipine Besylate (Norvasc) 10 mg DAILY ORAL 08/31/16 09:00 09/30/16 08:59 08/31/16 08:41 Cefepime HCl/ Sodium Chloride (Maxipime/Sodium Chloride 100ml bag) 100 ml @ 200 mls/hr Q24H IV 08/30/16 20:00 09/03/16 19:59 08/30/16 22:00 Clotrimazole 1 applic 1 applic EVERY 12 HOURS TOPIC 08/30/16 23:00 09/29/16 22:59 Heparin Sodium (Porcine) (Heparin 5000 units/ml) 5,000 units EVERY 12 HOURS SUBQ 08/30/16 21:00 09/29/16 20:59 Levetiracetam (Keppra) 250 mg Q12HR ORAL 08/30/16 21:00 09/29/16 20:59 08/31/16 08:41 Morphine Sulfate (Morphine Sulfate) 2 mg EVERY 4 HOURS PRN IVP Moderate Pain (Pain Scale 4-6) 08/30/16 21:00 09/06/16 20:59 Nitroglycerin (Ntg) 0.4 mg Q5M PRN SL Prn Chest Pain 08/30/16 18:00 09/29/16 17:59 Ondansetron HCl (Zofran) 4 mg Q6H PRN IVP Nausea & Vomiting 08/30/16 23:45 09/29/16 23:44 Polyethylene Glycol (Miralax) 17 gm DAILYPRN PRN ORAL Constipation 08/31/16 17:45 09/30/16 17:44 Temazepam (Restoril) 15 mg HSPRN PRN ORAL Insomnia 08/31/16 17:45 09/07/16 17:44 Vancomycin HCl (Vanco rx to dose) 1 ea DAILY PRN MISC . 08/31/16 09:00 09/30/16 08:59 Vancomycin HCl/ Dextrose (Vancomycin/D5W 100ml) 100 ml @ 100 mls/hr Q12H IV 08/30/16 23:00 09/04/16 22:59 08/30/16 22:55 Jerry Perez)Shilpi NP Aug 31, 2016 09:07
[2016-08-31] MEDS: Vancomycin 500mg/D5W 100ml IV SCH ×4 (10:45→23:17)
[2016-08-31 14:55] LABS: BASOPHILS % (AUTO) 0.7 % (0.0-2.0); EOSINOPHILS % (AUTO) 2.5 % (0.0-3.0); LYMPHOCYTES % (AUTO) 38.9 % (20.0-45.0); MEAN CORPUSCULAR HEMOGLOBIN 23.1 PG (27.0-31.0); MEAN CORPUSCULAR HGB CONC 28.8 G/DL (32.0-36.0); MEAN CORPUSCULAR VOLUME 80 FL (80-99); MEAN PLATELET VOLUME 8.4 FL (6.5-10.1); MONOCYTES % (AUTO) 6.6 % (1.0-10.0); NEUTROPHILS % (AUTO) 51.3 % (45.0-75.0); PLATELET COUNT 161 K/UL (150-450); RED CELL DISTRIBUTION WIDTH 13.1 % (11.6-14.8); WHITE BLOOD COUNT 5.2 K/UL (4.8-10.8)
[2016-08-31 15:11] LABS: ALANINE AMINOTRANSFERASE 20 U/L (3-33); ALBUMIN/GLOBULIN RATIO 0.8 (1.0-2.7); ANION GAP 15 (5-15); ASPARTATE AMINO TRANSFERASE 24 U/L (5-40); CALCIUM 8.7 mg/dL (8.6-10.2); CARBON DIOXIDE 26 mEQ/L (20-30); CHLORIDE 103 mEQ/L (98-107); CREATININE 0.4 mg/dL (0.5-0.9); HEMOLYSIS 1; MAGNESIUM 1.9 mg/dL (1.7-2.5); PHOSPHORUS 3.4 mg/dL (2.5-4.8); POTASSIUM 3.8 mEQ/L (3.4-4.9); SODIUM 144 mEQ/L (135-145); TOTAL PROTEIN 7.2 g/dL (6.6-8.7)
[2016-08-31] MEDS ORDERED: NS 275ml ONE (17:25)
[2016-08-31] MEDS ORDERED: Tubing IV Secondary IV ONE (17:25)
[2016-08-31] MEDS ORDERED: Miralax 17gm pkt ORAL PRN (17:45)
[2016-09-01] VITALS: BP 135/84
[2016-09-01 04:00] VITALS: BP 125/68
[2016-09-01 08:00] VITALS: BP 137/56
[2016-09-01] MEDS: Heparin 5000 units/ml inj SUBQ SCH ×2 (09:48→20:51)
--- NOTE | 2016-09-01 10:33 | Diagnostic Imaging Report ---
Indications: Abnormal renal function tests Technique: Transabdominal real-time grayscale and duplex Doppler imaging of the kidneys, retroperitoneum, and urinary bladder was performed Findings: Comparison: Abdominal ultrasound 05/12/15 Right kidney measures 9.4 cm in length. Normal contour, echotexture, cortical thickness. Contains 3.2 cm circumscribed anechoic focus in the medial interpolar cortex versus sinus. No stones, other focal lesions, hydronephrosis, or obvious perinephric abnormalities. Left kidney measures 10.9 cm in length. Normal contour, echotexture, cortical thickness. Contains 3.8 cm circumscribed anechoic focus in lower pole cortex. No stones, other focal lesions, hydronephrosis, or obvious perinephric abnormalities. The intrahepatic portion of inferior vena cava is patent and normal caliber. The urinary bladder is collapsed around Moreno catheter. Impression: Bilateral renal cortical cysts Otherwise negative exam
[2016-09-01] MEDS: Vancomycin 750mg/D5W 250ml IVPB SCH ×4 (11:12→23:14)
[2016-09-01 12:00] VITALS: BP 128/59
--- NOTE | 2016-09-01 12:44 | Infectious Diseases Prog Note ---
Assessment/Plan Assessment/Plan A: The patient is an 86-year-old female Fever improved Sepsis improved no evidence of Pneumonia Cxray : NAPD Probable UTI UCx: PSA and Enteroc. US : Bilateral renal cortical cyst PICC 08/27 Dementia. Parkinson disease. Dysphagia status post PEG HTN History of amputation of the left arm. Anemia PLAN: Continue the patient on vancomycin and cefepime d# 4 / 7 Monitor CBC Monitor BMP. Monitor cultures (blood ) Subjective Constitutional: Denies: anorexia, chills, drenching sweats, fatigue, fever, no symptoms, other Allergies: Coded Allergies: No Known Allergies (Unverified , 02/05/13) Objective Vital Signs Last 24 Hour Vital Signs Date Time Temp Pulse Resp B/P Pulse Ox O2 Delivery O2 Flow Rate FiO2 09/01/16 09:44 61 137/56 09/01/16 08:00 98.1 61 18 137/56 97 Nasal Cannula 2.0 09/01/16 07:57 94 Nasal Cannula 2.0 28 09/01/16 07:57 Nasal Cannula 2.0 28 09/01/16 07:57 62 18 Nasal Cannula 2.0 28 09/01/16 04:00 98.1 72 20 125/68 100 Nasal Cannula 2.0 09/01/16 00:00 98.1 67 20 135/84 100 Nasal Cannula 2.0 08/31/16 22:17 73 20 Room Air 21 08/31/16 20:11 97.2 73 21 137/56 99 Nasal Cannula 3.0 08/31/16 20:00 98.1 101 18 93/65 93 Nasal Cannula 3.0 08/31/16 16:00 97.7 91 20 117/40 99 Nasal Cannula 3.0 Height (Feet): 4 Height (Inches): 8.00 Weight (Pounds): 100 HEENT: atraumatic Respiratory/Chest: lungs clear Cardiovascular: normal rate Abdomen: non distended Laboratory Tests Test 08/31/16 14:25 08/31/16 21:55 White Blood Count 5.2 K/UL (4.8-10.8) Red Blood Count 4.00 M/UL (4.20-5.40) L Hemoglobin 9.2 G/DL (12.0-16.0) L Hematocrit 32.1 % (37.0-47.0) L Mean Corpuscular Volume 80 FL (80-99) Mean Corpuscular Hemoglobin 23.1 PG (27.0-31.0) L Mean Corpuscular Hemoglobin Concent 28.8 G/DL (32.0-36.0) L Red Cell Distribution Width 13.1 % (11.6-14.8) Platelet Count 161 K/UL (150-450) Mean Platelet Volume 8.4 FL (6.5-10.1) Neutrophils (%) (Auto) 51.3 % (45.0-75.0) Lymphocytes (%) (Auto) 38.9 % (20.0-45.0) Monocytes (%) (Auto) 6.6 % (1.0-10.0) Eosinophils (%) (Auto) 2.5 % (0.0-3.0) Basophils (%) (Auto) 0.7 % (0.0-2.0) Sodium Level 144 mEQ/L (135-145) Potassium Level 3.8 mEQ/L (3.4-4.9) Chloride Level 103 mEQ/L (98-107) Carbon Dioxide Level 26 mEQ/L (20-30) Anion Gap 15 (5-15) Blood Urea Nitrogen 18 mg/dL (7-23) Creatinine 0.4 mg/dL (0.5-0.9) L Estimat Glomerular Filtration Rate mL/min (>60) Glucose Level 122 mg/dL (74-106) H Calcium Level 8.7 mg/dL (8.6-10.2) Phosphorus Level 3.4 mg/dL (2.5-4.8) Magnesium Level 1.9 mg/dL (1.7-2.5) Total Bilirubin 0.2 mg/dL (0.0-1.2) Aspartate Amino Transf (AST/SGOT) 24 U/L (5-40) Alanine Aminotransferase (ALT/SGPT) 20 U/L (3-33) Alkaline Phosphatase 75 U/L (35-104) Total Protein 7.2 g/dL (6.6-8.7) Albumin 3.3 g/dL (3.5-5.2) L Globulin 3.9 g/dL Albumin/Globulin Ratio 0.8 (1.0-2.7) L Vancomycin Level Trough 7.7 ug/mL (5.0-12.0) Current Medications Medications (Trade) Dose Ordered Sig/Marcelino Route PRN Reason Start Time Stop Time Status Last Admin Dose Admin Acetaminophen (Tylenol) 650 mg Q4H PRN ORAL fever 08/30/16 21:45 09/29/16 21:44 Albuterol/ Ipratropium (DuoNeb 0.5-3(2.5)mg/3ml) 3 ml EVERY 4 HOURS PRN HHN Shortness of Breath 08/30/16 21:00 09/04/16 20:59 Amlodipine Besylate (Norvasc) 10 mg DAILY ORAL 08/31/16 09:00 09/30/16 08:59 09/01/16 09:44 Cefepime HCl/ Sodium Chloride (Maxipime/Sodium Chloride 100ml bag) 100 ml @ 200 mls/hr Q24H IV 08/30/16 20:00 09/03/16 19:59 08/30/16 22:00 Clotrimazole (Lotrimin) 1 applic EVERY 12 HOURS TOPIC 08/30/16 23:00 09/29/16 22:59 Heparin Sodium (Porcine) (Heparin 5000 units/ml) 5,000 units EVERY 12 HOURS SUBQ 08/30/16 21:00 09/29/16 20:59 09/01/16 09:48 Levetiracetam (Keppra) 250 mg Q12HR ORAL 08/30/16 21:00 09/29/16 20:59 09/01/16 09:43 Morphine Sulfate (Morphine Sulfate) 2 mg EVERY 4 HOURS PRN IVP Moderate Pain (Pain Scale 4-6) 08/30/16 21:00 09/06/16 20:59 Nitroglycerin (Ntg) 0.4 mg Q5M PRN SL Prn Chest Pain 08/30/16 18:00 09/29/16 17:59 Ondansetron HCl (Zofran) 4 mg Q6H PRN IVP Nausea & Vomiting 08/30/16 23:45 09/29/16 23:44 Polyethylene Glycol (Miralax) 17 gm DAILYPRN PRN ORAL Constipation 08/31/16 17:45 09/30/16 17:44 Ranitidine HCl 150 mg 150 mg BEDTIME ORAL 08/31/16 21:00 09/30/16 20:59 08/31/16 21:44 Temazepam (Restoril) 15 mg HSPRN PRN ORAL Insomnia 08/31/16 17:45 09/07/16 17:44 Vancomycin HCl (Vanco rx to dose) 1 ea DAILY PRN MISC . 08/31/16 09:00 09/30/16 08:59 Vancomycin HCl/ Dextrose (Vancomycin/D5W 250ml) 250 ml @ 167 mls/hr Q12H IVPB 09/01/16 11:00 09/06/16 10:59 09/01/16 11:12 OBI MONTEIRO M.D. Sep 01, 2016 12:44
--- NOTE | 2016-09-01 13:42 | Pulmonology Progress Note ---
Assessment/Plan Assessment/Plan ASSESSMENT WHITNEY 2 to dehydration -resolved UTI HTN anemia dysphagia, G tub Alzheimer dementia sacral decub st 4- POA seizure disorder functional quadriplegia PLAN OF CARE MS floor s/p IVF monitor renal parameters, lytes - stable avoid nephrotoxic abx ID follows blood cx preliminary negative, urine cx + Pseudomonas, Enterococci faecalis CXR negative for acute cardiopulmonary disease O2 HHN prn BP management with CCB, optimize as needed stable monitor HH, iron panel with low iron strict aspiration precautions, GT feeding, monitor tolerance seizure precautions, continue Keppra wound care as per wound care nurse recommendations, Bowel regimen DVT, GI prophylaxis dc plan for tomorrow when cleared by ID with outlined abx regimen case discussed and evaluated by supervising physician Subjective Allergies: Coded Allergies: No Known Allergies (Unverified , 02/05/13) Subjective afebrile, no leucocytosis renal parameters down to normal on O2 via NC, sat stable, no signs of respiratory distress Objective Last 24 Hour Vital Signs Date Time Temp Pulse Resp B/P Pulse Ox O2 Delivery O2 Flow Rate FiO2 09/01/16 09:44 61 137/56 09/01/16 08:00 98.1 61 18 137/56 97 Nasal Cannula 2.0 09/01/16 07:57 94 Nasal Cannula 2.0 28 09/01/16 07:57 Nasal Cannula 2.0 28 09/01/16 07:57 62 18 Nasal Cannula 2.0 28 09/01/16 04:00 98.1 72 20 125/68 100 Nasal Cannula 2.0 09/01/16 00:00 98.1 67 20 135/84 100 Nasal Cannula 2.0 08/31/16 22:17 73 20 Room Air 21 08/31/16 20:11 97.2 73 21 137/56 99 Nasal Cannula 3.0 08/31/16 20:00 98.1 101 18 93/65 93 Nasal Cannula 3.0 08/31/16 16:00 97.7 91 20 117/40 99 Nasal Cannula 3.0 Intake and Output 08/31/16 09/01/16 19:00 07:00 Intake Total 700 ml 610 ml Output Total 250 ml 550 ml Balance 450 ml 60 ml Free Water 100 ml 60 ml Tube Feeding 600 ml 550 ml Output Urine Total 250 ml 550 ml # Voids 1 Objective General Appearance: cachetic, other - frail, elderly, nonverbal, chronically ill looking bedridden female in NAD HEENT: normocephalic, atraumatic, other - NC on Respiratory/Chest: lungs clear - with moderate air entry , no respiratory distress, no accessory muscle use Cardiovascular: normal rate, no JVD Abdomen: normal bowel sounds, soft, non tender, other - G tube Genitourinary: other - Moreno Extremities: no edema, other - R arm below elbow amputation Skin: other - st 4 sacral and multiple skin breakdown, see pictures Neurologic/Psychiatric: abnormal gait - bedridden, other - nonverbal, contracted, Laboratory Tests 08/31/16 14:25: White Blood Count 5.2, Red Blood Count 4.00L, Hemoglobin 9.2L, Hematocrit 32.1L , Mean Corpuscular Volume 80, Mean Corpuscular Hemoglobin 23.1L, Mean Corpuscular Hemoglobin Concent 28.8L, Red Cell Distribution Width 13.1, Platelet Count 161, Mean Platelet Volume 8.4, Neutrophils (%) (Auto) 51.3, Lymphocytes (%) (Auto) 38.9, Monocytes (%) (Auto) 6.6, Eosinophils (%) (Auto) 2.5, Basophils (%) (Auto) 0.7, Sodium Level 144, Potassium Level 3.8, Chloride Level 103, Carbon Dioxide Level 26, Anion Gap 15, Blood Urea Nitrogen 18, Creatinine 0.4L, Estimat Glomerular Filtration Rate , Glucose Level 122H, Calcium Level 8.7, Phosphorus Level 3.4, Magnesium Level 1.9, Total Bilirubin 0.2, Aspartate Amino Transf (AST/SGOT) 24, Alanine Aminotransferase (ALT/SGPT) 20, Alkaline Phosphatase 75, Total Protein 7.2, Albumin 3.3L, Globulin 3.9, Albumin/Globulin Ratio 0.8L 08/31/16 21:55: Vancomycin Level Trough 7.7 Current Medications Medications (Trade) Dose Ordered Sig/Marcelino Route PRN Reason Start Time Stop Time Status Last Admin Dose Admin Acetaminophen (Tylenol) 650 mg Q4H PRN ORAL fever 08/30/16 21:45 09/29/16 21:44 Albuterol/ Ipratropium (DuoNeb 0.5-3(2.5)mg/3ml) 3 ml EVERY 4 HOURS PRN HHN Shortness of Breath 08/30/16 21:00 09/04/16 20:59 Amlodipine Besylate (Norvasc) 10 mg DAILY ORAL 08/31/16 09:00 09/30/16 08:59 09/01/16 09:44 Cefepime HCl/ Sodium Chloride (Maxipime/Sodium Chloride 100ml bag) 100 ml @ 200 mls/hr Q24H IV 08/30/16 20:00 09/03/16 19:59 08/30/16 22:00 Clotrimazole (Lotrimin) 1 applic EVERY 12 HOURS TOPIC 08/30/16 23:00 09/29/16 22:59 Heparin Sodium (Porcine) (Heparin 5000 units/ml) 5,000 units EVERY 12 HOURS SUBQ 08/30/16 21:00 09/29/16 20:59 09/01/16 09:48 Levetiracetam (Keppra) 250 mg Q12HR ORAL 08/30/16 21:00 09/29/16 20:59 09/01/16 09:43 Morphine Sulfate (Morphine Sulfate) 2 mg EVERY 4 HOURS PRN IVP Moderate Pain (Pain Scale 4-6) 08/30/16 21:00 09/06/16 20:59 Nitroglycerin (Ntg) 0.4 mg Q5M PRN SL Prn Chest Pain 08/30/16 18:00 09/29/16 17:59 Ondansetron HCl (Zofran) 4 mg Q6H PRN IVP Nausea & Vomiting 08/30/16 23:45 09/29/16 23:44 Polyethylene Glycol (Miralax) 17 gm DAILYPRN PRN ORAL Constipation 08/31/16 17:45 09/30/16 17:44 Ranitidine HCl 150 mg 150 mg BEDTIME ORAL 08/31/16 21:00 09/30/16 20:59 08/31/16 21:44 Temazepam (Restoril) 15 mg HSPRN PRN ORAL Insomnia 08/31/16 17:45 09/07/16 17:44 Vancomycin HCl (Vanco rx to dose) 1 ea DAILY PRN MISC . 08/31/16 09:00 09/30/16 08:59 Vancomycin HCl/ Dextrose (Vancomycin/D5W 250ml) 250 ml @ 167 mls/hr Q12H IVPB 09/01/16 11:00 09/06/16 10:59 09/01/16 11:12 Jerry ([facility])Shilpi NP Sep 01, 2016 13:42
[2016-09-01 16:00] VITALS: BP 131/59
[2016-09-01 20:00] VITALS: BP 135/81
[2016-09-02] VITALS (7 sets, daily range): BP systolic 92–138; BP diastolic 46–62
[2016-09-02 06:31] LABS: BASOPHILS % (AUTO) 0.6 % (0.0-2.0); EOSINOPHILS % (AUTO) 4.9 % (0.0-3.0); LYMPHOCYTES % (AUTO) 36.6 % (20.0-45.0); MEAN CORPUSCULAR HEMOGLOBIN 23.6 PG (27.0-31.0); MEAN CORPUSCULAR HGB CONC 28.9 G/DL (32.0-36.0); MEAN CORPUSCULAR VOLUME 82 FL (80-99); MEAN PLATELET VOLUME 10.2 FL (6.5-10.1); MONOCYTES % (AUTO) 3.3 % (1.0-10.0); NEUTROPHILS % (AUTO) 54.6 % (45.0-75.0); PLATELET COUNT 180 K/UL (150-450); RED BLOOD COUNT 4.08 M/UL (4.20-5.40); RED CELL DISTRIBUTION WIDTH 13.5 % (11.6-14.8); WHITE BLOOD COUNT 5.6 K/UL (4.8-10.8)
[2016-09-02 06:57] LABS: ANION GAP 12 (5-15); CALCIUM 8.6 mg/dL (8.6-10.2); CARBON DIOXIDE 27 mEQ/L (20-30); CHLORIDE 102 mEQ/L (98-107); CREATININE 0.4 mg/dL (0.5-0.9); HEMOLYSIS 68; POTASSIUM 4.8 mEQ/L (3.4-4.9); SODIUM 141 mEQ/L (135-145)
[2016-09-02] MEDS: Heparin 5000 units/ml inj SUBQ SCH ×2 (10:39→22:05)
[2016-09-02] MEDS: Vancomycin 750mg/D5W 250ml IVPB SCH ×4 (13:08→23:20)
--- NOTE | 2016-09-02 17:36 | Pulmonology Progress Note ---
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 (4) PEG (percutaneous endoscopic gastrostomy) adjustment/replacement/removal (5) Alzheimer's dementia (6) Sacral decubitus ulcer, stage IV (7) Sepsis (8) Anemia Assessment/Plan heart rat lower imrpoving gradually continue antibiotics IV fluids check cultures wound care tolerating feeding Subjective ROS Limited/Unobtainable: Yes Neurologic: Reports: confusion, weakness Allergies: Coded Allergies: No Known Allergies (Unverified , 02/05/13) Objective Last 24 Hour Vital Signs Date Time Temp Pulse Resp B/P Pulse Ox O2 Delivery O2 Flow Rate FiO2 09/02/16 16:00 97.6 79 19 138/57 99 Room Air 09/02/16 12:00 97.2 116 18 130/47 100 Nasal Cannula 2.0 09/02/16 10:50 69 131/56 09/02/16 10:31 71 130/56 09/02/16 08:35 70 18 Nasal Cannula 2.0 28 09/02/16 08:35 Nasal Cannula 2.0 28 09/02/16 08:35 99 Nasal Cannula 2.0 28 09/02/16 08:00 98.8 62 18 138/46 100 Nasal Cannula 2.0 09/02/16 04:00 98.2 67 18 120/50 100 Nasal Cannula 3.0 09/02/16 00:00 98.4 68 18 92/59 99 Nasal Cannula 2.0 09/01/16 20:06 68 18 Nasal Cannula 2.0 28 09/01/16 20:06 Nasal Cannula 2.0 28 09/01/16 20:06 95 Nasal Cannula 2.0 28 09/01/16 20:00 97.9 78 20 135/81 97 Nasal Cannula 2.0 Intake and Output 09/01/16 09/02/16 19:00 07:00 Intake Total 330 ml Output Total 400 ml Balance 330 ml -400 ml Free Water 30 ml Tube Feeding 300 ml Output Urine Total 400 ml # Bowel Movements 1 General Appearance: no acute distress HEENT: normocephalic, atraumatic, PERRL Respiratory/Chest: chest wall non-tender, decreased breath sounds, accessory muscle use Breasts: no masses Cardiovascular: normal peripheral pulses, normal rate, regular rhythm, no JVD Abdomen: normal bowel sounds, soft, non tender, no organomegaly Genitourinary: normal external genitalia Extremities: no cyanosis Skin: no rash Neurologic/Psychiatric: reading tutor II-XII grossly normal, disoriented, aphasia, depressed affect Laboratory Tests 09/02/16 05:00: White Blood Count 5.6, Red Blood Count 4.08L, Hemoglobin 9.6L, Hematocrit 33.4L , Mean Corpuscular Volume 82, Mean Corpuscular Hemoglobin 23.6L, Mean Corpuscular Hemoglobin Concent 28.9L, Red Cell Distribution Width 13.5, Platelet Count 180, Mean Platelet Volume 10.2H, Neutrophils (%) (Auto) 54.6, Lymphocytes (%) (Auto) 36.6, Monocytes (%) (Auto) 3.3, Eosinophils (%) (Auto) 4.9H, Basophils (%) (Auto) 0.6, Sodium Level 141, Potassium Level 4.8, Chloride Level 102, Carbon Dioxide Level 27, Anion Gap 12, Blood Urea Nitrogen 18, Creatinine 0.4L, Estimat Glomerular Filtration Rate , Glucose Level 104, Calcium Level 8.6 09/02/16 11:30: Vancomycin Level Trough 14.1H Current Medications Medications (Trade) Dose Ordered Sig/Marcelino Route PRN Reason Start Time Stop Time Status Last Admin Dose Admin Acetaminophen (Tylenol) 650 mg Q4H PRN ORAL fever 08/30/16 21:45 09/29/16 21:44 Albuterol/ Ipratropium (DuoNeb 0.5-3(2.5)mg/3ml) 3 ml EVERY 4 HOURS PRN HHN Shortness of Breath 08/30/16 21:00 09/04/16 20:59 Amlodipine Besylate (Norvasc) 10 mg DAILY ORAL 08/31/16 09:00 09/30/16 08:59 09/02/16 10:50 Cefepime HCl/ Sodium Chloride (Maxipime/Sodium Chloride 100ml bag) 100 ml @ 200 mls/hr Q24H IV 08/30/16 20:00 09/03/16 19:59 09/01/16 20:59 Clotrimazole (Lotrimin) 1 applic EVERY 12 HOURS TOPIC 08/30/16 23:00 09/29/16 22:59 09/02/16 13:48 Heparin Sodium (Porcine) (Heparin 5000 units/ml) 5,000 units EVERY 12 HOURS SUBQ 08/30/16 21:00 09/29/16 20:59 09/02/16 10:39 Levetiracetam (Keppra) 250 mg Q12HR ORAL 08/30/16 21:00 09/29/16 20:59 09/02/16 10:39 Morphine Sulfate (Morphine Sulfate) 2 mg EVERY 4 HOURS PRN IVP Moderate Pain (Pain Scale 4-6) 08/30/16 21:00 09/06/16 20:59 Nitroglycerin (Ntg) 0.4 mg Q5M PRN SL Prn Chest Pain 08/30/16 18:00 09/29/16 17:59 Ondansetron HCl (Zofran) 4 mg Q6H PRN IVP Nausea & Vomiting 08/30/16 23:45 09/29/16 23:44 Polyethylene Glycol (Miralax) 17 gm DAILYPRN PRN ORAL Constipation 08/31/16 17:45 09/30/16 17:44 Ranitidine HCl 150 mg 150 mg BEDTIME ORAL 08/31/16 21:00 09/30/16 20:59 09/01/16 20:49 Temazepam (Restoril) 15 mg HSPRN PRN ORAL Insomnia 08/31/16 17:45 09/07/16 17:44 Vancomycin HCl (Vanco rx to dose) 1 ea DAILY PRN MISC . 08/31/16 09:00 09/30/16 08:59 Vancomycin HCl/ Dextrose (Vancomycin/D5W 250ml) 250 ml @ 167 mls/hr Q12H IVPB 09/01/16 11:00 09/06/16 10:59 09/02/16 13:08 TAMMY MARRERO Sep 02, 2016 17:36
--- NOTE | 2016-09-02 18:11 | Infectious Diseases Prog Note ---
Assessment/Plan Assessment/Plan ASSESSMENT: 86-year-old female with: Polymicrobial ( qS-PSA, VSE.faecalis ) UTI - repeat UA, UCx improved US : Bilateral renal cortical cyst no evidence of Pneumonia Cxray : NAPD Multiple superficial decubiti POA, not grossly infected Sepsis SP Fever - resolved, no leukocytosis PICC 1/3 Dementia. 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 Will continue IV vancomycin and cefepime d# 5 while still inpt Monitor CBC Monitor BMP. Monitor CXR - repeat CXR AM wound care aspiration precautions Subjective Allergies: Coded Allergies: No Known Allergies (Unverified , 02/05/13) Subjective pt unable to provide any information fevers resolved family at bedside Objective Vital Signs Last 24 Hour Vital Signs Date Time Temp Pulse Resp B/P Pulse Ox O2 Delivery O2 Flow Rate FiO2 09/02/16 16:00 97.6 79 19 138/57 99 Room Air 09/02/16 12:00 97.2 116 18 130/47 100 Nasal Cannula 2.0 09/02/16 10:50 69 131/56 09/02/16 10:31 71 130/56 09/02/16 08:35 70 18 Nasal Cannula 2.0 28 09/02/16 08:35 Nasal Cannula 2.0 28 09/02/16 08:35 99 Nasal Cannula 2.0 28 09/02/16 08:00 98.8 62 18 138/46 100 Nasal Cannula 2.0 09/02/16 04:00 98.2 67 18 120/50 100 Nasal Cannula 3.0 09/02/16 00:00 98.4 68 18 92/59 99 Nasal Cannula 2.0 09/01/16 20:06 68 18 Nasal Cannula 2.0 28 09/01/16 20:06 Nasal Cannula 2.0 28 09/01/16 20:06 95 Nasal Cannula 2.0 28 09/01/16 20:00 97.9 78 20 135/81 97 Nasal Cannula 2.0 Height (Feet): 4 Height (Inches): 8.00 Weight (Pounds): 100 General Appearance: no acute distress Respiratory/Chest: no respiratory distress Cardiovascular: normal rate, regular rhythm Abdomen: normal bowel sounds, soft, non tender, non distended, other - PEG Laboratory Tests Test 1/9/17 05:00 09/02/16 11:30 White Blood Count 5.6 K/UL (4.8-10.8) Red Blood Count 4.08 M/UL (4.20-5.40) L Hemoglobin 9.6 G/DL (12.0-16.0) L Hematocrit 33.4 % (37.0-47.0) L Mean Corpuscular Volume 82 FL (80-99) Mean Corpuscular Hemoglobin 23.6 PG (27.0-31.0) L Mean Corpuscular Hemoglobin Concent 28.9 G/DL (32.0-36.0) L Red Cell Distribution Width 13.5 % (11.6-14.8) Platelet Count 180 K/UL (150-450) Mean Platelet Volume 10.2 FL (6.5-10.1) H Neutrophils (%) (Auto) 54.6 % (45.0-75.0) Lymphocytes (%) (Auto) 36.6 % (20.0-45.0) Monocytes (%) (Auto) 3.3 % (1.0-10.0) Eosinophils (%) (Auto) 4.9 % (0.0-3.0) H Basophils (%) (Auto) 0.6 % (0.0-2.0) Sodium Level 141 mEQ/L (135-145) Potassium Level 4.8 mEQ/L (3.4-4.9) Chloride Level 102 mEQ/L (98-107) Carbon Dioxide Level 27 mEQ/L (20-30) Anion Gap 12 (5-15) Blood Urea Nitrogen 18 mg/dL (7-23) Creatinine 0.4 mg/dL (0.5-0.9) L Estimat Glomerular Filtration Rate mL/min (>60) Glucose Level 104 mg/dL (74-106) Calcium Level 8.6 mg/dL (8.6-10.2) Vancomycin Level Trough 14.1 ug/mL (5.0-12.0) H Current Medications Medications (Trade) Dose Ordered Sig/Marcelino Route PRN Reason Start Time Stop Time Status Last Admin Dose Admin Acetaminophen (Tylenol) 650 mg Q4H PRN ORAL fever 08/30/16 21:45 09/29/16 21:44 Albuterol/ Ipratropium (DuoNeb 0.5-3(2.5)mg/3ml) 3 ml EVERY 4 HOURS PRN HHN Shortness of Breath 08/30/16 21:00 09/04/16 20:59 Amlodipine Besylate (Norvasc) 10 mg DAILY ORAL 08/31/16 09:00 09/30/16 08:59 09/02/16 10:50 Cefepime HCl/ Sodium Chloride (Maxipime/Sodium Chloride 100ml bag) 100 ml @ 200 mls/hr Q24H IV 08/30/16 20:00 09/03/16 19:59 09/01/16 20:59 Clotrimazole (Lotrimin) 1 applic EVERY 12 HOURS TOPIC 08/30/16 23:00 09/29/16 22:59 09/02/16 13:48 Heparin Sodium (Porcine) (Heparin 5000 units/ml) 5,000 units EVERY 12 HOURS SUBQ 08/30/16 21:00 09/29/16 20:59 09/02/16 10:39 Levetiracetam (Keppra) 250 mg Q12HR ORAL 08/30/16 21:00 09/29/16 20:59 09/02/16 10:39 Morphine Sulfate (Morphine Sulfate) 2 mg EVERY 4 HOURS PRN IVP Moderate Pain (Pain Scale 4-6) 08/30/16 21:00 09/06/16 20:59 Nitroglycerin (Ntg) 0.4 mg Q5M PRN SL Prn Chest Pain 08/30/16 18:00 09/29/16 17:59 Ondansetron HCl (Zofran) 4 mg Q6H PRN IVP Nausea & Vomiting 08/30/16 23:45 09/29/16 23:44 Polyethylene Glycol (Miralax) 17 gm DAILYPRN PRN ORAL Constipation 08/31/16 17:45 09/30/16 17:44 Ranitidine HCl 150 mg 150 mg BEDTIME ORAL 08/31/16 21:00 09/30/16 20:59 09/01/16 20:49 Temazepam (Restoril) 15 mg HSPRN PRN ORAL Insomnia 08/31/16 17:45 09/07/16 17:44 Vancomycin HCl (Vanco rx to dose) 1 ea DAILY PRN MISC . 08/31/16 09:00 09/30/16 08:59 Vancomycin HCl/ Dextrose (Vancomycin/D5W 250ml) 250 ml @ 167 mls/hr Q12H IVPB 09/01/16 11:00 09/06/16 10:59 09/02/16 13:08 MERRILL BENITEZ Sep 02, 2016 18:11
--- NOTE | 2016-09-02 19:20 | Consultation ---
History of Present Illness General Date patient seen: Sep 02, 2016 Time patient seen: 19:17 Chief Complaint: Flu Like Symptoms Reason for Consultation: Sacral ulcer Present Illness HPI patient is an 86 yof known to me from outpatient wound center where she was treated and healed of sacral ulcer. She is bedridden with contractures. She is under the care of her daughter. She was admitted for upper respiratory congestion. She is on a low airloss bed and pressure points have been padded. She also had a recent h/o punctate wound of the left lateral foot. Allergies: Coded Allergies: No Known Allergies (Unverified , 02/05/13) Medication History Scheduled Alprazolam (Alprazolam), 0.5 MG ORAL TID, (Reported) Amlodipine Besylate* (Amlodipine Besylate*), 10 MG ORAL DAILY, (Reported) Ascorbic Acid* (Vitamin C*), 500 MG ORAL DAILY, (Reported) Benazepril Hcl* (Benazepril Hcl*), 10 MG GT DAILY, (Reported) Biotin (Biotin), 10,000 MCG PO DAILY, (Reported) Calcium Carbonate/Vitamin D3 (Calcium 500 + Vit D3 400 Tab), 1 EACH PO DAILY, ( Reported) Cyanocobalamin/Folic Acid (Vitamin E66-Vkqwk Acid Tablet), 1 EACH PO DAILY, ( Reported) Enteral Nutrition Formula (Glucerna 1 Rodrigue), 250 ML GT DAILY, (Reported) Enzymes,Digestive (Enzyme Digest), 1 EACH PO DAILY, (Reported) Ferrous Sulfate* (Ferrous Sulfate*), 325 MG ORAL DAILY, (Reported) Garlic (Garlic), 200 MG PO DAILY, (Reported) Lactobacillus Acidophilus (Acidophilus Probiotic), 1 MG PO DAILY, (Reported) Levetiracetam (Levetiracetam), 250 MG ORAL Q12HR Lorazepam* (Lorazepam*), 1 MG ORAL THREE TIMES A DAY, (Reported) Magnesium Oxide/Mag Aa Chelate (Magnesium 300 Mg Capsule), 300 MG PO DAILY, ( Reported) Omeprazole (Omeprazole), MG ORAL DAILY, (Reported) Polyethylene Glycol* (Miralax*), 17 GM ORAL DAILY, (Reported) Protein Supplement (Protein Powder), 454 GM PO DAILY, (Reported) Ranitidine Hcl* (Zantac*), 150 MG ORAL BEDTIME Sennosides/Docusate Sodium (Senna Laxative Tablet), 2 EACH PO DAILY, (Reported) Zinc Gluconate (Zinc), 50 MG ORAL DAILY, (Reported) Zolpidem Tartrate* (Ambien*), 5 MG ORAL BEDTIME, (Reported) [super green powder], 1 SCOOP GT DAILY, (Reported) Scheduled PRN Alprazolam* (Xanax*), 0.5 MG ORAL PRN PRN for For Anxiety, (Reported) Hydrocodone Bit/Acetaminophen 7.5-325* ([place] 7.5-325*), 1 TAB ORAL Q6H PRN for For Pain, (Reported) Promethazine Hcl (Promethazine Hcl*), 5 ML ORAL Q6H PRN for Nausea & Vomiting, ( Reported) Zolpidem Tartrate* (Zolpidem Tartrate*), 5 MG ORAL BEDTIME PRN for Insomnia, ( Reported) Miscellaneous Medications Cranberry Conc/Ascorbic Acid (Cranberry 6,000 Mg Softgel), 1 EACH PO, (Reported) Multivitamin (Multivitamins), 1 EACH PO, (Reported) Discontinued Medications Acetaminophen* (Acetaminophen*), 650 MG ORAL Q4H PRN for fever Discontinued Reason: Therapy completed Amlodipine Besylate* (Amlodipine Besylate*), 2.5 MG ORAL DAILY, (Reported) Discontinued Reason: Therapy completed Amoxicillin/Potassium Clav 875-125* (Augmentin 875-125 Tablet*), 1 TAB GT TWICE A DAY Discontinued Reason: Therapy completed Benazepril Hcl* (Benazepril Hcl*), 10 MG ORAL DAILY, (Reported) Discontinued Reason: Therapy completed Ciprofloxacin* (Cipro*), 500 MG PO BID Discontinued Reason: Therapy completed Levofloxacin* (Levaquin*), 500 MG GT DAILY Discontinued Reason: Therapy completed Trimethoprim/Sulfamethoxazole (Bactrim Ds Tablet), 1 TAB ORAL TWICE A DAY Discontinued Reason: Therapy completed Patient History Limited by: medical condition History Provided By: Family Member Healthcare decision maker pt's POA Resuscitation status Full Code Advanced Directive on File Yes Physical Exam General Appearance: no apparent distress Lines, tubes and drains: peripheral Respiratory/Chest: no respiratory distress Extremities: other - contractures at hips and knees Skin Exam: other - No open wound on sacrum. Healed left lateral foot wound. No other open wounds. Musculoskeletal: atrophy Last 24 Hour Vital Signs Date Time Temp Pulse Resp B/P Pulse Ox O2 Delivery O2 Flow Rate FiO2 09/02/16 16:00 97.6 79 19 138/57 99 Room Air 09/02/16 12:00 97.2 116 18 130/47 100 Nasal Cannula 2.0 09/02/16 10:50 69 131/56 09/02/16 10:31 71 130/56 09/02/16 08:35 70 18 Nasal Cannula 2.0 28 09/02/16 08:35 Nasal Cannula 2.0 28 09/02/16 08:35 99 Nasal Cannula 2.0 28 09/02/16 08:00 98.8 62 18 138/46 100 Nasal Cannula 2.0 09/02/16 04:00 98.2 67 18 120/50 100 Nasal Cannula 3.0 09/02/16 00:00 98.4 68 18 92/59 99 Nasal Cannula 2.0 09/01/16 20:06 68 18 Nasal Cannula 2.0 28 09/01/16 20:06 Nasal Cannula 2.0 28 09/01/16 20:06 95 Nasal Cannula 2.0 28 09/01/16 20:00 97.9 78 20 135/81 97 Nasal Cannula 2.0 Intake and Output 09/01/16 09/02/16 19:00 07:00 Intake Total 330 ml Output Total 400 ml Balance 330 ml -400 ml Free Water 30 ml Tube Feeding 300 ml Output Urine Total 400 ml # Bowel Movements 1 Laboratory Tests Test 09/02/16 05:00 09/02/16 11:30 White Blood Count 5.6 K/UL (4.8-10.8) Red Blood Count 4.08 M/UL (4.20-5.40) L Hemoglobin 9.6 G/DL (12.0-16.0) L Hematocrit 33.4 % (37.0-47.0) L Mean Corpuscular Volume 82 FL (80-99) Mean Corpuscular Hemoglobin 23.6 PG (27.0-31.0) L Mean Corpuscular Hemoglobin Concent 28.9 G/DL (32.0-36.0) L Red Cell Distribution Width 13.5 % (11.6-14.8) Platelet Count 180 K/UL (150-450) Mean Platelet Volume 10.2 FL (6.5-10.1) H Neutrophils (%) (Auto) 54.6 % (45.0-75.0) Lymphocytes (%) (Auto) 36.6 % (20.0-45.0) Monocytes (%) (Auto) 3.3 % (1.0-10.0) Eosinophils (%) (Auto) 4.9 % (0.0-3.0) H Basophils (%) (Auto) 0.6 % (0.0-2.0) Sodium Level 141 mEQ/L (135-145) Potassium Level 4.8 mEQ/L (3.4-4.9) Chloride Level 102 mEQ/L (98-107) Carbon Dioxide Level 27 mEQ/L (20-30) Anion Gap 12 (5-15) Blood Urea Nitrogen 18 mg/dL (7-23) Creatinine 0.4 mg/dL (0.5-0.9) L Estimat Glomerular Filtration Rate mL/min (>60) Glucose Level 104 mg/dL (74-106) Calcium Level 8.6 mg/dL (8.6-10.2) Vancomycin Level Trough 14.1 ug/mL (5.0-12.0) H Height (Feet): 4 Height (Inches): 8.00 Weight (Pounds): 100 Medications Current Medications Medications (Trade) Dose Ordered Sig/Marcelino Route PRN Reason Start Time Stop Time Status Last Admin Dose Admin Acetaminophen (Tylenol) 650 mg Q4H PRN ORAL fever 08/30/16 21:45 09/29/16 21:44 Albuterol/ Ipratropium (DuoNeb 0.5-3(2.5)mg/3ml) 3 ml EVERY 4 HOURS PRN HHN Shortness of Breath 08/30/16 21:00 09/04/16 20:59 Amlodipine Besylate (Norvasc) 10 mg DAILY ORAL 08/31/16 09:00 09/30/16 08:59 09/02/16 10:50 Cefepime HCl/ Sodium Chloride (Maxipime/Sodium Chloride 100ml bag) 100 ml @ 200 mls/hr Q24H IV 08/30/16 20:00 09/03/16 19:59 09/01/16 20:59 Clotrimazole (Lotrimin) 1 applic EVERY 12 HOURS TOPIC 08/30/16 23:00 09/29/16 22:59 09/02/16 13:48 Heparin Sodium (Porcine) (Heparin 5000 units/ml) 5,000 units EVERY 12 HOURS SUBQ 08/30/16 21:00 09/29/16 20:59 09/02/16 10:39 Levetiracetam (Keppra) 250 mg Q12HR ORAL 08/30/16 21:00 09/29/16 20:59 09/02/16 10:39 Morphine Sulfate (Morphine Sulfate) 2 mg EVERY 4 HOURS PRN IVP Moderate Pain (Pain Scale 4-6) 08/30/16 21:00 09/06/16 20:59 Nitroglycerin (Ntg) 0.4 mg Q5M PRN SL Prn Chest Pain 08/30/16 18:00 09/29/16 17:59 Ondansetron HCl (Zofran) 4 mg Q6H PRN IVP Nausea & Vomiting 08/30/16 23:45 09/29/16 23:44 Polyethylene Glycol (Miralax) 17 gm DAILYPRN PRN ORAL Constipation 08/31/16 17:45 09/30/16 17:44 Ranitidine HCl 150 mg 150 mg BEDTIME ORAL 08/31/16 21:00 09/30/16 20:59 09/01/16 20:49 Temazepam (Restoril) 15 mg HSPRN PRN ORAL Insomnia 08/31/16 17:45 09/07/16 17:44 Vancomycin HCl (Vanco rx to dose) 1 ea DAILY PRN MISC . 08/31/16 09:00 09/30/16 08:59 Vancomycin HCl/ Dextrose (Vancomycin/D5W 250ml) 250 ml @ 167 mls/hr Q12H IVPB 09/01/16 11:00 09/06/16 10:59 09/02/16 13:08 Assessment/Plan Status: stable Assessment/Plan Patient currently has no open sacral wound and no left foot wound. Patient needs to be turned every 2-3 hours and have her pressure points padded due to her LE contractures. Currently no topical treatments are necessary. Thank you. REGINO JOSE Sep 02, 2016 19:20
[2016-09-03] VITALS: BP 87/39
[2016-09-03 04:00] VITALS: BP 94/44
[2016-09-03 08:00] VITALS: BP 96/61
[2016-09-03 10:50] VITALS: BP 124/48
[2016-09-03] MEDS: Heparin 5000 units/ml inj SUBQ SCH (11:22)
[2016-09-03] MEDS: Vancomycin 750mg/D5W 250ml IVPB SCH ×2 (11:25)
[2016-09-03 12:00] VITALS: BP 107/45
[2016-09-03 16:00] VITALS: BP 118/55
--- NOTE | 2016-09-03 17:52 | Infectious Diseases Prog Note ---
Assessment/Plan Assessment/Plan ASSESSMENT: 86-year-old female with: Polymicrobial ( qS-PSA, VSE.faecalis ) UTI - repeat UA, UCx improved US : Bilateral renal cortical cyst no evidence of Pneumonia Cxray : NAPD Multiple superficial decubiti POA, not grossly infected Sepsis SP Fever - resolved, no leukocytosis PICC 1/3 Dementia. 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 Will continue IV vancomycin and cefepime d# 6 while still inpt Monitor CBC Monitor BMP. Monitor CXR wound care aspiration precautions DC PICC, hall at discharge Subjective Allergies: Coded Allergies: No Known Allergies (Unverified , 02/05/13) Subjective pt unable to provide any information fevers resolved for possible DC Objective Vital Signs Last 24 Hour Vital Signs Date Time Temp Pulse Resp B/P Pulse Ox O2 Delivery O2 Flow Rate FiO2 09/03/16 16:00 97.9 53 20 118/55 100 Nasal Cannula 3.0 09/03/16 12:00 96.3 65 18 107/45 100 Nasal Cannula 2.0 09/03/16 09:00 60 124/48 09/03/16 08:00 98.1 64 18 96/61 100 Nasal Cannula 2.0 09/03/16 07:48 Nasal Cannula 2.0 28 09/03/16 07:47 100 Nasal Cannula 2.0 28 09/03/16 07:45 69 16 Nasal Cannula 2.0 28 09/03/16 04:00 98.2 67 20 94/44 99 Nasal Cannula 2.0 09/03/16 00:00 97.9 70 22 87/39 100 Nasal Cannula 3.0 09/02/16 20:00 97.7 20 127/62 99 Room Air 09/02/16 19:30 71 16 Nasal Cannula 2.0 28 09/02/16 19:30 98 Nasal Cannula 2.0 28 09/02/16 19:30 Nasal Cannula 2.0 28 Height (Feet): 4 Height (Inches): 8.00 Weight (Pounds): 100 General Appearance: no acute distress Respiratory/Chest: no respiratory distress Cardiovascular: normal rate, regular rhythm Abdomen: normal bowel sounds, soft, non tender, non distended Current Medications Medications (Trade) Dose Ordered Sig/Marcelino Route PRN Reason Start Time Stop Time Status Last Admin Dose Admin Acetaminophen (Tylenol) 650 mg Q4H PRN ORAL fever 08/30/16 21:45 09/29/16 21:44 Albuterol/ Ipratropium (DuoNeb 0.5-3(2.5)mg/3ml) 3 ml EVERY 4 HOURS PRN HHN Shortness of Breath 08/30/16 21:00 09/04/16 20:59 Amlodipine Besylate (Norvasc) 10 mg DAILY ORAL 08/31/16 09:00 09/30/16 08:59 09/02/16 10:50 Cefepime HCl/ Sodium Chloride (Maxipime/Sodium Chloride 100ml bag) 100 ml @ 200 mls/hr Q24H IV 08/30/16 20:00 09/05/16 19:59 09/02/16 21:22 Clotrimazole (Lotrimin) 1 applic EVERY 12 HOURS TOPIC 08/30/16 23:00 09/29/16 22:59 09/03/16 11:22 Heparin Sodium (Porcine) (Heparin 5000 units/ml) 5,000 units EVERY 12 HOURS SUBQ 08/30/16 21:00 09/29/16 20:59 09/03/16 11:22 Levetiracetam (Keppra) 250 mg Q12HR ORAL 08/30/16 21:00 09/29/16 20:59 09/03/16 11:20 Morphine Sulfate (Morphine Sulfate) 2 mg EVERY 4 HOURS PRN IVP Moderate Pain (Pain Scale 4-6) 08/30/16 21:00 09/06/16 20:59 Nitroglycerin (Ntg) 0.4 mg Q5M PRN SL Prn Chest Pain 08/30/16 18:00 09/29/16 17:59 Ondansetron HCl (Zofran) 4 mg Q6H PRN IVP Nausea & Vomiting 08/30/16 23:45 09/29/16 23:44 Polyethylene Glycol (Miralax) 17 gm DAILYPRN PRN ORAL Constipation 08/31/16 17:45 09/30/16 17:44 Ranitidine HCl 150 mg 150 mg BEDTIME ORAL 08/31/16 21:00 09/30/16 20:59 09/02/16 22:04 Temazepam (Restoril) 15 mg HSPRN PRN ORAL Insomnia 08/31/16 17:45 09/07/16 17:44 Vancomycin HCl (Vanco rx to dose) 1 ea DAILY PRN MISC . 08/31/16 09:00 09/30/16 08:59 Vancomycin HCl/ Dextrose (Vancomycin/D5W 250ml) 250 ml @ 167 mls/hr Q12H IVPB 09/01/16 11:00 09/06/16 10:59 09/03/16 11:25 MERRILL BENITEZ Sep 03, 2016 17:51
--- NOTE | 2016-09-03 18:25 | Pulmonology Progress Note ---
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 (4) PEG (percutaneous endoscopic gastrostomy) adjustment/replacement/removal (5) Alzheimer's dementia (6) Sacral decubitus ulcer, stage IV (7) Sepsis (8) Anemia Assessment/Plan heart rat lower imrpoving gradually continue antibiotics IV fluids check cultures wound care tolerating feeding Subjective ROS Limited/Unobtainable: Yes Constitutional: Reports: anorexia, chills, fatigue, fever Allergies: Coded Allergies: No Known Allergies (Unverified , 02/05/13) Objective Last 24 Hour Vital Signs Date Time Temp Pulse Resp B/P Pulse Ox O2 Delivery O2 Flow Rate FiO2 09/03/16 16:00 97.9 53 20 118/55 100 Nasal Cannula 3.0 09/03/16 12:00 96.3 65 18 107/45 100 Nasal Cannula 2.0 09/03/16 10:50 60 124/48 09/03/16 09:00 60 124/48 09/03/16 08:00 98.1 64 18 96/61 100 Nasal Cannula 2.0 09/03/16 07:48 Nasal Cannula 2.0 28 09/03/16 07:47 100 Nasal Cannula 2.0 28 09/03/16 07:45 69 16 Nasal Cannula 2.0 28 09/03/16 04:00 98.2 67 20 94/44 99 Nasal Cannula 2.0 09/03/16 00:00 97.9 70 22 87/39 100 Nasal Cannula 3.0 09/02/16 20:00 97.7 20 127/62 99 Room Air 09/02/16 19:30 71 16 Nasal Cannula 2.0 28 09/02/16 19:30 98 Nasal Cannula 2.0 28 09/02/16 19:30 Nasal Cannula 2.0 28 Intake and Output 09/02/16 09/03/16 19:00 07:00 Intake Total 860 ml 330 ml Output Total 875 ml Balance 860 ml -545 ml Free Water 60 ml 30 ml IV Total 250 ml 100 ml Tube Feeding 550 ml 200 ml Output Urine Total 875 ml General Appearance: no acute distress HEENT: normocephalic, atraumatic, PERRL Respiratory/Chest: chest wall non-tender, no accessory muscle use, decreased breath sounds, accessory muscle use Breasts: no masses Cardiovascular: normal peripheral pulses, normal rate, regular rhythm, no JVD Abdomen: normal bowel sounds, soft, non tender, no organomegaly Genitourinary: normal external genitalia Extremities: no cyanosis Skin: no rash, lesions, ulcers Neurologic/Psychiatric: etl lead II-XII grossly normal, no motor/sensory deficits Current Medications Medications (Trade) Dose Ordered Sig/Marcelino Route PRN Reason Start Time Stop Time Status Last Admin Dose Admin Acetaminophen (Tylenol) 650 mg Q4H PRN ORAL fever 08/30/16 21:45 09/29/16 21:44 Albuterol/ Ipratropium (DuoNeb 0.5-3(2.5)mg/3ml) 3 ml EVERY 4 HOURS PRN HHN Shortness of Breath 08/30/16 21:00 09/04/16 20:59 Amlodipine Besylate (Norvasc) 10 mg DAILY ORAL 08/31/16 09:00 09/30/16 08:59 09/02/16 10:50 Cefepime HCl/ Sodium Chloride (Maxipime/Sodium Chloride 100ml bag) 100 ml @ 200 mls/hr Q24H IV 08/30/16 20:00 09/05/16 19:59 09/02/16 21:22 Clotrimazole (Lotrimin) 1 applic EVERY 12 HOURS TOPIC 08/30/16 23:00 09/29/16 22:59 09/03/16 11:22 Heparin Sodium (Porcine) (Heparin 5000 units/ml) 5,000 units EVERY 12 HOURS SUBQ 08/30/16 21:00 09/29/16 20:59 09/03/16 11:22 Levetiracetam (Keppra) 250 mg Q12HR ORAL 08/30/16 21:00 09/29/16 20:59 09/03/16 11:20 Morphine Sulfate (Morphine Sulfate) 2 mg EVERY 4 HOURS PRN IVP Moderate Pain (Pain Scale 4-6) 08/30/16 21:00 09/06/16 20:59 Nitroglycerin (Ntg) 0.4 mg Q5M PRN SL Prn Chest Pain 08/30/16 18:00 09/29/16 17:59 Ondansetron HCl (Zofran) 4 mg Q6H PRN IVP Nausea & Vomiting 08/30/16 23:45 09/29/16 23:44 Polyethylene Glycol (Miralax) 17 gm DAILYPRN PRN ORAL Constipation 08/31/16 17:45 09/30/16 17:44 Ranitidine HCl 150 mg 150 mg BEDTIME ORAL 08/31/16 21:00 09/30/16 20:59 09/02/16 22:04 Temazepam (Restoril) 15 mg HSPRN PRN ORAL Insomnia 08/31/16 17:45 09/07/16 17:44 Vancomycin HCl (Vanco rx to dose) 1 ea DAILY PRN MISC . 08/31/16 09:00 09/30/16 08:59 Vancomycin HCl/ Dextrose (Vancomycin/D5W 250ml) 250 ml @ 167 mls/hr Q12H IVPB 09/01/16 11:00 09/06/16 10:59 09/03/16 11:25 TAMMY MARRERO Sep 03, 2016 18:25
[2016-09-03] MEDS ORDERED: NS 275ml ONE ×2 (19:14)
--- NOTE | 2016-09-04 12:00 | Discharge Summary ---
Discharge Summary Hospital Course Date of Admission Aug 27, 2016 at 17:16 Date of Discharge Sep 03, 2016 at 19:15 Admitting Diagnosis pneumonitis HPI Dinah De Los Santos is a 86 year old female who was admitted on Aug 27, 2016 at 17:16 for Pneumonitis Consultations ID dr De Los Santos plastic surgery - dr Pride Hospital Course dc summary dictated #[id number] Discharge Medications Continued Medications: Alprazolam (Alprazolam) 0.5 Mg Tab.rapdis 0.5 MG ORAL TID Amlodipine Besylate* (Amlodipine Besylate*) 10 Mg Tablet 10 MG ORAL DAILY, TAB Ascorbic Acid* (Vitamin C*) 500 Mg Tablet 500 MG ORAL DAILY, #30 TAB 0 Refills Benazepril Hcl* (Benazepril Hcl*) 10 Mg Tablet 10 MG GT DAILY, TAB Calcium Carbonate/Vitamin D3 (Calcium 500 + Vit D3 400 Tab) 1 Each Tablet 1 EACH PO DAILY, TAB Cranberry Conc/Ascorbic Acid (Cranberry 6,000 Mg Softgel) 1 Each Capsule 1 EACH PO, CAP Enzymes,Digestive (Enzyme Digest) 1 Each Capsule 1 EACH PO DAILY, CAP Ferrous Sulfate* (Ferrous Sulfate*) 325 Mg Tablet 325 MG ORAL DAILY, #30 TAB 0 Refills Garlic (Garlic) 200 Mg Tablet 200 MG PO DAILY, TAB Hydrocodone Bit/Acetaminophen 7.5-325* ([place] 7.5-325*) 1 Each Tablet 1 TAB ORAL Q6H PRN for For Pain, #30 TAB 0 Refills Lactobacillus Acidophilus (Acidophilus Probiotic) 1 Mg Tablet 1 MG PO DAILY, TAB Lorazepam* (Lorazepam*) 1 Mg Tablet 1 MG ORAL THREE TIMES A DAY, TAB Omeprazole (Omeprazole) 20 Mg Capsule.dr MG ORAL DAILY, CAP Polyethylene Glycol* (Miralax*) 17 Gm Powd.pack 17 GM ORAL DAILY, PACKET Protein Supplement (Protein Powder) 454 Gm Powder 454 GM PO DAILY, GM Ranitidine Hcl* (Zantac*) 150 Mg Tablet 150 MG ORAL BEDTIME, #30 TAB Zinc Gluconate (Zinc) 50 Mg Tablet 50 MG ORAL DAILY, TAB Zolpidem Tartrate* (Ambien*) 5 Mg Tablet 5 MG ORAL BEDTIME Zolpidem Tartrate* (Zolpidem Tartrate*) 5 Mg Tablet 5 MG ORAL BEDTIME PRN for Insomnia, TAB 0 Refills [super green powder] () 1 SCOOP GT DAILY Discharge Discharge Disposition Patient was discharged to Home (01) Discharge Diagnoses: Jerry ([facility]),Shilpi MARKHAM Sep 04, 2016 12:00
--- NOTE | 2016-09-05 03:57 | Discharge Summary 2 SIG ---
DATE OF ADMISSION: 08/27/2016 DATE OF DISCHARGE: 09/03/2016 REASON FOR HOSPITALIZATION: 86 years old female, was sent from the correction with increased shortness of breath with gradual onset of symptoms over the past few days. Apparently, the patient was recently in contact with somebody who had a respiratory illness in the group home facility. The patient noted to be markedly debilitated and demented. The patient unable to provide any information. The patient has marked contractures, in the emergency department urinalysis revealed evidence of urinary tract infection. The patient was anemic , with evidence of mild dehydration, no leukocytosis, fever of 102.0, Lactic acid 1.7. Chest x-ray revealed no acute disease. The patient transferred to [facility]/Surg floor for further management. ADMITTING DIAGNOSES: 1. Possible sepsis, 2. Urinary tract infection. 3. Dehydration. 4. Dysphagia, gastrostomy tube. 5. Alzheimer dementia. HOSPITAL COURSE: The patient was admitted to [facility]/Surg floor. Infectious Disease consult was requested. The patient started on the IV fluids. Renal parameters and electrolytes were closely monitored and were stable. IV fluids discontinued after correcting of dehydration. Recommended to avoid nephrotoxic. Renal ultrasound done in lieu of acute kidney injury and revealed normal echogenicity, bilateral kidney and no evidence of hydronephrosis, bilateral renal cortical cysts. Intravenous antibiotics provided and ID followed the patient. Blood cultures negative. Urine culture positive for Pseudomonas and Enterococcus faecalis. Chest x-ray was negative for any acute cardiopulmonary disease, no evidence of pneumonia. ID doctor recommended continue antibiotics while inpatient and cleared for discharge off intravenous antibiotics. Per ID, multiple decubitus present on admission are superficial and not grossly infected, no need for treatment. Supplemental oxygen and pulmonary toilet provided as needed. Blood pressure was managed with calcium channel paula and was stable. Hemoglobin and hematocrit were monitored. Iron panel with a low iron, but hemoglobin and hematocrit stable, no trend down. Strict aspiration precautions maintained. The patient was able to tolerate tube feedings. Seizure precautions maintained. No seizure activity while in the hospital. Continue Keppra. Wound care as per wound care nurse recommendations. Plastic surgeon seen the patient and concluded that since there is no open sacral or left foot wound, he just recommended turn patient q.2 hours and keep off pressure points, no treatment necessary at this time. DVT and GI prophylaxes provided. Bowel regimen instituted. The patient was stable for discharge to group home facility, status post IV antibiotics. FINAL DIAGNOSES: 1. Sepsis. 2. Urinary tract infection, status post treatment. 3. Acute kidney injury, secondary to dehydration, resolved. 4. Hypertension. 5. Anemia. 6. Dysphagia, gastrostomy tube. 7. Alzheimer dementia. 8. Sacral decubitus, present on admission. 9. Seizure disorder. 10. Functional quadriplegia. Ev Manzo M.D. I have been assigned to dictate discharge summary on this account and I was not involved in the patient's management. Shilpi GalvinMiddletown State Hospitaljulien N.PEdin DR: NEERAJ JOB#: [id number] CC: MARIE
== END 2016-09-03 19:15 | disposition home health service (06) | DRG 720 ==
LOC: EMR 15:30 → EDBEDREQ 17:09 → 2E 17:16 → EDBEDREQ 17:19 → 2E 08-28 21:55 → 4W 08-30 17:59
PROC: 02HV33Z Insertion of Infusion Device into Superior Vena Cava, Percutaneous Approach (ICD-10-PCS; principal; 2016-08-27)
PROC: B548ZZA Ultrasonography of Superior Vena Cava, Guidance (ICD-10-PCS; 2016-08-27)
DX: A41.9 Sepsis, unspecified organism (principal); R57.9 Shock, unspecified; N17.9 Acute kidney failure, unspecified; L89.154 Pressure ulcer of sacral region, stage 4; R53.2 Functional quadriplegia; Z93.1 Gastrostomy status; E86.0 Dehydration; G30.9 Alzheimer's disease, unspecified; F02.81 Dementia in other diseases classified elsewhere, unspecified severity, with behavioral disturbance; N39.0 Urinary tract infection, site not specified; D64.9 Anemia, unspecified; Z74.01 Bed confinement status; R13.10 Dysphagia, unspecified; B95.2 Enterococcus as the cause of diseases classified elsewhere; B96.5 Pseudomonas (aeruginosa) (mallei) (pseudomallei) as the cause of diseases classified elsewhere; G40.909 Epilepsy, unspecified, not intractable, without status epilepticus; N28.1 Cyst of kidney, acquired; Z89.202 Acquired absence of left upper limb, unspecified level
CPT/HCPCS: 36415; 36569; 71010; 76775; 76937; 80048; 80053; 80202; 80299; 81001; 81003; 82378; 82436; 82533; 82550; 82553; 82607; 82746; 83540; 83550; 83605; 83615; 83735; 83880; 83930; 83935; 84100; 84133; 84300; 84439; 84443; 84481; 84484; 84550; 85007; 85025; 85044; 85060; 85610; 85651; 85730; 87040; 87081; 87086; 87181; 89050; 93005; 94640; 94664; 94760; J7620

== ENCOUNTER 2016-12-30 13:44 | Outpatient (RCR) | payer MEDICARE, MEDICAID ==
[~2016-12-30] VITALS: Ht 160 cm; Wt 52.2 kg
[2017-01-09] MEDS ORDERED: Lidocaine HCl 2% Jelly 5ml Tube TOPIC ONE (16:45)
[2017-01-22] MEDS ORDERED: Lidocaine/Epinephrine 2% 20 ML VIAL IV ONE (16:30)
[2017-01-22] MEDS ORDERED: Lidocaine HCl 2% Jelly 5ml Tube TOPIC ONE (16:30)
== END 2017-01-22 | disposition home or self-care (01) ==
LOC: WCC 13:44
DX: L89.210 Pressure ulcer of right hip, unstageable (principal); L89.320 Pressure ulcer of left buttock, unstageable; L89.892 Pressure ulcer of other site, stage 2; L89.154 Pressure ulcer of sacral region, stage 4; Z89.111 Acquired absence of right hand; F03.90 Unspecified dementia, unspecified severity, without behavioral disturbance, psychotic disturbance, mood disturbance, and anxiety; I10 Essential (primary) hypertension
CPT/HCPCS: 11042; 11043; 11045; 11046; 84134

== ENCOUNTER 2016-12-30 14:42 | Outpatient (CLI) | payer MEDICARE, MEDICAID | END 2016-12-30 15:00 | disposition home or self-care (01) | LOC: LAB 14:42 | DX: E46 Unspecified protein-calorie malnutrition (principal) ==

== ENCOUNTER 2017-01-27 13:09 | Outpatient (CLI) | payer MEDICARE, MEDICAID ==
[2017-01-27 13:42] LABS: BASOPHILS % (AUTO) 0.6 % (0.0-2.0); EOSINOPHILS % (AUTO) 0.7 % (0.0-3.0); LYMPHOCYTES % (AUTO) 15.4 % (20.0-45.0); MEAN CORPUSCULAR HEMOGLOBIN 22.8 PG (27.0-31.0); MEAN CORPUSCULAR HGB CONC 30.2 G/DL (32.0-36.0); MEAN CORPUSCULAR VOLUME 75 FL (80-99); MEAN PLATELET VOLUME 6.1 FL (6.5-10.1); MONOCYTES % (AUTO) 4.8 % (1.0-10.0); NEUTROPHILS % (AUTO) 78.6 % (45.0-75.0); PLATELET COUNT 358 K/UL (150-450); RED BLOOD COUNT 4.13 M/UL (4.20-5.40); RED CELL DISTRIBUTION WIDTH 13.8 % (11.6-14.8); WHITE BLOOD COUNT 10.1 K/UL (4.8-10.8)
[2017-01-27 13:44] LABS: APPEARANCE,URINE CLEAR; KETONES,URINE NEGATIVE (NEGATIVE); LEUKOCYTE ESTERASE ,URINE 3+ (NEGATIVE); NITRITE,URINE NEGATIVE (NEGATIVE); PH,URINE 6 (4.5-8.0); PROTEIN,URINE 2+ (NEGATIVE); UROBILINOGEN,URINE NORMAL MG/DL (0.0-1.0)
[2017-01-27 13:55] LABS: ALANINE AMINOTRANSFERASE 23 U/L (3-33); ALBUMIN/GLOBULIN RATIO 0.6 (1.0-2.7); ANION GAP 16 (5-15); ASPARTATE AMINO TRANSFERASE 18 U/L (5-40); CALCIUM 8.9 mg/dL (8.6-10.2); CARBON DIOXIDE 24 mEQ/L (20-30); CHLORIDE 101 mEQ/L (98-107); CHOLESTEROL 115 mg/dL (< 200); CHOLESTEROL/HDL RATIO 4.3 (3.3-4.4); CREATININE 0.4 mg/dL (0.5-0.9); HEMOLYSIS 0; LDL CHOLESTEROL (CALC.) 74 mg/dL (60-99); POTASSIUM 3.7 mEQ/L (3.4-4.9); SODIUM 141 mEQ/L (135-145); TOTAL PROTEIN 7.9 g/dL (6.6-8.7)
[2017-01-27 13:59] LABS: BACTERIA,URINE FEW /HPF; RBC,URINE 20-30 /HPF (0 - 2); SQUAMOUS EPITHELIAL CELL,UR FEW /LPF (NONE/OCC)
== END 2017-01-27 15:09 | disposition home or self-care (01) ==
LOC: EDBD 13:09 → LAB 13:09
DX: I10 Essential (primary) hypertension (principal); E11.9 Type 2 diabetes mellitus without complications; D64.9 Anemia, unspecified
CPT/HCPCS: 36415; 80053; 80061; 81003; 83036; 85025; 87086

== ENCOUNTER 2017-01-27 13:30 | Outpatient (RCR) | payer MEDICARE, MEDICAID ==
[~2017-01-27] VITALS: Ht 160 cm; Wt 52.2 kg
== END 2017-02-21 | disposition home or self-care (01) ==
LOC: EDBD → WCC 13:30
DX: L89.154 Pressure ulcer of sacral region, stage 4 (principal); L89.210 Pressure ulcer of right hip, unstageable; L89.322 Pressure ulcer of left buttock, stage 2; I10 Essential (primary) hypertension; F03.90 Unspecified dementia, unspecified severity, without behavioral disturbance, psychotic disturbance, mood disturbance, and anxiety; Z89.111 Acquired absence of right hand
CPT/HCPCS: 11043; 11046; 87070; 87181; 87205

== ENCOUNTER → 2017-02-05 | Outpatient (CLI) | payer MEDICARE, MEDICAID ==
[~2017-02-05] VITALS: Ht 160 cm; Wt 52.2 kg
--- NOTE | 2017-02-05 16:43 | Diagnostic Imaging Report ---
Indication: 87-year-old bedbound female with severe dementia, large sacral opening, large left buttock and right greater trochanteric region open wound Technique: Axial, coronal, and sagittal T1 fast spin-echo, axial STIR FSE, coronal and sagittal FSE IR images of the pelvis Comparison: Findings: There is extensive image degradation due to motion artifact. Images are also suboptimal due to patient contraction. There is a large soft tissue defect in an above the gluteal crease. There is considerable edema of the gluteal musculature, particularly on the left. A soft tissue defect is seen in the left gluteal region as well . No definite discrete fluid collection is evident. No definite marrow signal abnormality seen in the sacrum or the coccyx. However, the amount of motion artifact precludes confident exclusion of significant marrow edema, particularly in the smaller coccygeal segments. There is susceptibility artifact from left hip hardware. This may obscure pathology. There is also a medullary lissett within the right femur A Moreno catheter is present within the bladder which is nondistended. Impression: Very limited exam, as described Midline and left buttock soft tissue defects, compatible with decubitus ulcers described on technologist note. Extensive signal abnormality of the left gluteal musculature. Less extensive signal abnormality of the right gluteal musculature. While possibly representing trauma, given stated clinical history of patient being bedbound and presence of decubitus changes, this most likely reflects myositis, likely infectious. No definite osseous signal abnormality to suggest osteomyelitis. However, given the extensive motion artifact, this is impossible excluded with any confidence. No definite discrete fluid collection to suggest abscess Moreno catheter
== END | disposition home or self-care (01) ==
LOC: MRI 11:25
DX: M86.9 Osteomyelitis, unspecified (principal)
CPT/HCPCS: 72195

== ENCOUNTER 2017-02-10 11:51 | Outpatient (CLI) | payer MEDICAID, MEDICARE ==
--- NOTE | 2017-02-12 12:02 | Diagnostic Imaging Report ---
Indication: 87-year-old female with right greater trochanteric and and sacral wounds. Technique: IV administration 20 mCi of and technetium MDP. Note that on initial attempt at injection, dose extravasated and IV access was lost. Patient returned 1.5 hours later, at which point IV access was established and flow, blood pool, and delayed images were obtained. Comparison: No plain radiographic comparison available reference made to pelvic MRI 02/05/2017 Findings: Exam is very limited, as the patient is very contracted. There is mildly increased flow in the right hip region. There is increased flow and blood pool activity at the region of the tip of the coccyx. Static images are limited due to patient contraction. There is marked increased static activity involving the proximal femur and what is presumably the femoral head. Only mildly increased activity is seen in the left proximal femur there is and in the acetabular region.. There is increased coccygeal activity. There is equivocally a band of increased activity in the mid sacrum, with equivocal corresponding abnormality on the flow and blood pool images.. Photopenic defects are seen along both femoral shafts, consistent with the hardware that is present. Mildly increased activity is seen in the lumbar spine. Renal activity is demonstrated. Impression: Very limited exam, as described, due to patient contracture, prior bilateral femoral surgery Abnormal static activity in the region of the femoral head and proximal femoral shaft. Only mildly abnormal flow and blood pool activity in these areas. While the intensity of the activity is somewhat concerning for osteomyelitis, findings are nonetheless nonspecific, and it is possible that this just represents reactive/degenerative change secondary to the prior surgery, trauma, and deformity Increased flow, blood pool, and static activity in the region of the tip of the coccyx, could indicate coccygeal osteomyelitis. Mid sacral increased static, flow, blood pool activity, could also indicate osteomyelitis Photopenic defects in the femoral shafts bilaterally, consistent with known surgical hardware
== END 2017-02-10 13:51 | disposition home or self-care (01) ==
LOC: NUM 11:51
DX: M86.9 Osteomyelitis, unspecified (principal)
CPT/HCPCS: 78315; A4641

== ENCOUNTER 2017-02-10 17:13 | Outpatient (CLI) | payer MEDICARE, MEDICAID ==
[2017-02-10 17:45] LABS: EOSINOPHILS % (AUTO) 2.8 % (0.0-3.0); LYMPHOCYTES % (AUTO) 32.6 % (20.0-45.0); MEAN CORPUSCULAR HEMOGLOBIN 22.4 PG (27.0-31.0); MEAN CORPUSCULAR HGB CONC 29.5 G/DL (32.0-36.0); MEAN CORPUSCULAR VOLUME 76 FL (80-99); MEAN PLATELET VOLUME 7.1 FL (6.5-10.1); MONOCYTES % (AUTO) 4.3 % (1.0-10.0); NEUTROPHILS % (AUTO) 59.2 % (45.0-75.0); PLATELET COUNT 325 K/UL (150-450); RED BLOOD COUNT 3.71 M/UL (4.20-5.40); RED CELL DISTRIBUTION WIDTH 14.1 % (11.6-14.8); WHITE BLOOD COUNT 9.6 K/UL (4.8-10.8)
--- NOTE | 2017-02-10 18:15 | Consultation ---
DATE OF CONSULTATION: INFECTIOUS DISEASE CONSULTATION CONSULTING PHYSICIAN: Mann Saenz M.D. REQUESTING PHYSICIAN: John Pride M.D. REASON FOR CONSULTATION: Deep sacral pressure wound infection with possible underlying osteomyelitis due to Escherichia coli and methicillin-resistant Staphylococcus aureus with bilateral hip wounds. Recommendation for antibiotics treatment. HISTORY OF PRESENT ILLNESS: The patient is an 87-year-old female with past medical history of dementia, Parkinson disease, dysphagia, status post PEG tube placement, and hypertension, who was recently hospitalized in August 2016 for pneumonia and was treated with vancomycin and cefepime, has developed multiple pressure wounds since her discharge from the hospital. The patient had a deep sacral pressure wound measured about 7 cm length with 7.2 cm width with partially scarred tissue and necrotic sloughy base, which she has been receiving local wound care for over the last three to four months. She also had developed two hip wounds with necrotic yellowish tissue at the base. The patient has been receiving extensive wound care here at the wound care clinic with not much improvement and her wound condition, multiple cultures were taken from her wounds including the left buttock wound, which grew E. coli and methicillin-resistant Staphylococcus aureus. Her sacral deep wound culture grew E. coli, methicillin-resistant Staphylococcus aureus, and Enterococcus faecalis, which is sensitive to ampicillin. Her right hip wound grew only methicillin-resistant Staphylococcus aureus. So, I was consulted by the plastic surgeon, Dr. Pride, for antibiotics treatment for her sacral and hip wound infection with possible underlying osteomyelitis. Since, she had an MRI test of the sacrum was non-conclusive and could not rule out osteo due to motion artifact, she also was supposed to get a bone scan today. Unfortunately, there was difficulty finding vein to give the patient contrast for the bone scan study, so it was canceled. PAST MEDICAL HISTORY: Significant for dementia, Parkinson disease, dysphagia, status post PEG, hypertension, history of amputation of the left arm, and anemia. PAST SURGICAL HISTORY: Amputation of the left arm and PEG tube placement. MEDICATIONS: She is on long list of medication for Parkinson disease, and dementia. Please refer to the medical record. ALLERGIES: The patient has no known drug allergy. SOCIAL HISTORY: She lives at home with her daughter who is the caregiver. No recent drugs, tobacco, or alcohol. FAMILY HISTORY: Not contributory. REVIEW OF SYSTEMS: Unable to obtain. The patient is a poor historian and cannot provide any history. PHYSICAL EXAM: GENERAL: An elderly female, malnourished, demented, nonverbal, lying in bed, alert, and not in distress. HEENT: Normocephalic and atraumatic. Pupils reactive to light. Dry oral mucosa. No exudate. NECK: Supple. No lymphadenopathy. CARDIOVASCULAR: Regular rate and rhythm. No murmur or gallop. LUNGS: Diminished breathing sounds on the bases. No wheezing or rhonchi. Normal breathing effort. ABDOMEN: Soft, nontender, and nondistended. Positive bowel sounds. No hepatosplenomegaly. No ascites. EXTREMITIES: She had no edema or cyanosis on the lower extremity. SKIN: The patient had large deep sacral pressure wound measured about 7 x 7.2 x 1.9 depth with partially scarred tissue and yellowish sloughy material at the base. Right hip wound also deep, measured 3.5 x 6.8 x 0.5 cm depth with no tunneling and no sinus tract. Left buttock chronic stage II pressure wound not healed, measured 6.7 x 3.5 x 0.4 cm depth, and no tunneling. LABORATORY DATA: No recent laboratories done, but her BUN and creatinine in August 2016 were 18 and 0.4. Her white count was 5.6 and platelet count of 180,000. MICROBIOLOGY: Left buttock wound culture on 02/03/2017 grew E. coli and methicillin-resistant Staphylococcus aureus. Sacral deep wound culture grew methicillin-resistant Staphylococcus aureus, E. coli, and Enterococcus faecalis. Right hip wound grew methicillin-resistant Staphylococcus aureus. IMAGING: MRI did not show any conclusive results due to motion artifact and bone scan today was not done. ASSESSMENT AND PLAN: 1. A large sacral pressure wounds with possible underlying osteomyelitis and infection due to methicillin-resistant Staphylococcus aureus, Enterococcus, and Escherichia coli. Recommend antibiotics treatment for six weeks to cover for possible underlying osteomyelitis. Vancomycin and ceftriaxone will be my initial choice. We need laboratories to be done before starting antibiotics therapy especially renal function tests and creatinine clearance. Pharmacy to monitor vancomycin trough as an outpatient and adjust doses as needed. We will continue to follow laboratories and vancomycin trough for the pharmacist and make recommendations as necessary. 2. Bilateral hip wound with infection due to methicillin-resistant Staphylococcus aureus and Escherichia coli. The patient will be on vancomycin and ceftriaxone, which will cover both organisms. Recommend off-loading and continuous wound care as needed and nutritional support. 3. Dementia and poor oral intake. Recommend nutritional support and psych followup. Plan of care was discussed with the daughter and the plastic surgeon at the bedside and all parties agreed on the plan of care. We will proceed with antibiotics after laboratories are obtained. Please feel free to call with any questions. Mann Saenz M.D. DR: DAGOBERTO JOB#: [id number] CC:
[2017-02-10 18:16] LABS: ALANINE AMINOTRANSFERASE 58 U/L (3-33); ALBUMIN/GLOBULIN RATIO 0.6 (1.0-2.7); ANION GAP 14 (5-15); ASPARTATE AMINO TRANSFERASE 39 U/L (5-40); CARBON DIOXIDE 29 mEQ/L (20-30); CHLORIDE 113 mEQ/L (98-107); CREATININE 0.7 mg/dL (0.5-0.9); HEMOLYSIS 0; POTASSIUM 4.5 mEQ/L (3.4-4.9); SODIUM 156 mEQ/L (135-145); TOTAL PROTEIN 7.8 g/dL (6.6-8.7)
== END 2017-02-10 19:13 | disposition home or self-care (01) ==
LOC: LAB 17:13
DX: A49.02 Methicillin resistant Staphylococcus aureus infection, unspecified site (principal); A49.8 Other bacterial infections of unspecified site; F03.90 Unspecified dementia, unspecified severity, without behavioral disturbance, psychotic disturbance, mood disturbance, and anxiety; L89.322 Pressure ulcer of left buttock, stage 2; G20 Parkinson's disease; Z89.202 Acquired absence of left upper limb, unspecified level; I10 Essential (primary) hypertension
CPT/HCPCS: 36415; 80053; 85025

== ENCOUNTER 2017-02-11 10:50 | Outpatient (CLI) | payer MEDICAID, MEDICARE ==
[~2017-02-11] VITALS: Ht 149.9 cm; Wt 45.4 kg
--- NOTE | 2017-02-11 11:56 | Pre-Procedure Note/Attestation ---
Pre-Procedure Note/Attestation Complete Prior to Procedure Planned Procedure: right Procedure Narrative: PICC Indications for Procedure Pre-Operative Diagnosis: poor venous access, needs long-term IV abx Attestation I attest that I discussed the nature of the procedure; its benefits; risks and complications; and alternatives (and the risks and benefits of such alternatives ), prior to the procedure, with the patient (or the patient's legal industrial sales representative). I attest that, if there was a reasonable possibility of needing a blood transfusion, the patient (or the patient's legal industrial sales representative) was given the [facility] standardized written summary, pursuant to the [employer] [place] Blood Safety Act ([place] Health and Safety Code # 1645, as amended). I attest that I re-evaluated the patient just prior to the surgery and that there has been no change in the patient's H&P, except as documented below: Discussed with pt's daughter, who has power of associate attorney VIKTORIYA RODRIGUEZ M.D. Feb 11, 2017 11:56
[2017-02-11] MEDS ORDERED: Heparin 2000 units/Ns 1000ml IV ONE (12:00)
[2017-02-11] MEDS ORDERED: Lidocaine 1% Plain 30 ml INJ ONE (12:00)
[2017-02-11] MEDS ORDERED: Dyna-Hex 2% Top Sol 8oz TOPIC SCH (15:00)
--- NOTE | 2017-02-11 16:02 | Radiology PICC Progress Note ---
Radiology PICC Progress Note Consent Obtained: yes Upper Extremity: right Vein: brachial Complications: none VIKTORIYA RODRIGUEZ M.D. Feb 11, 2017 16:02
--- NOTE | 2017-02-12 12:58 | Diagnostic Imaging Report ---
Indications: Needs long-term IV access Technique: Ultrasound confirms patent compressible right cephalic vein. Total sterile technique, including sterile probe cover and sterile gel, hat, mask,, sterile gown, large sterile drape, and preparation with 2% chlorhexidine utilized. Local anesthesia with 1% lidocaine. Under real-time ultrasound guidance, attempted puncture puncture right cephalic vein using 21-gauge needle, documented and archived, passage 0.018 guidewire under direct fluoroscopy, which would not pass easily. Puncture reattempted in the cephalic vein, again due to small caliber and easy compressibility the vessel, wire access could not be obtained. One of 2 paired radial arteries was punctured, 0.018 guidewire was passed to the level of the axillary vein but not beyond. Peel-away sheath was inserted, followed by insertion of a Kumpe catheter. Contrast was injected, demonstrated no forward flow of contrast. Uncertain as to whether sheath was intraluminal. The second of the 2 brachial veins was then punctured. This time, the guidewire was passed successfully to the level of the subclavian vein. A Kumpe catheter was used to manipulate the guidewire into the right atrium. The guidewire was used to determine appropriate catheter length, exchange for 5 Slovak peel-away sheath. 5 [place] Bard dual-lumen power PICC cut to cm. It was inserted through the peel-away sheath. Peel-away sheath and guidewire removed. Catheter fixed to the skin. Both catheter ports aspirated and flushed. Patient tolerated procedure well, without immediate complication. Digital radiograph documents satisfactory catheter tip position, at the cavoatrial junction. Total fluoroscopy time 79 seconds. Total dose area product 0.30003 mGycm2 Impression: Successful placement of right arm PICC under sonographic and fluoroscopic guidance, as described above.
== END 2017-02-11 12:50 | disposition home or self-care (01) ==
LOC: RAD 10:50
DX: Z79.899 Other long term (current) drug therapy (principal); M86.9 Osteomyelitis, unspecified
CPT/HCPCS: 36569; 76937; J1644; J2001

== ENCOUNTER 2017-02-11 12:18 | Emergency (ER) | payer MEDICARE ==
[~2017-02-11] VITALS: Ht 147.3 cm; Wt 45.4 kg
[2017-02-11 13:30] VITALS: BP 81/44
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
[2017-02-11 14:32] VITALS: BP 96/33
--- NOTE | 2017-02-12 07:49 | Diagnostic Imaging Report ---
Indication: TUBE PLCMT Technique: Supine view of the abdomen after injection of water-soluble contrast into gastrostomy Comparison: 04/21/2016 Findings: Contrast opacifies the stomach. No contrast extravasation is demonstrated. The bowel gas pattern is unremarkable. No significant change Impression: Satisfactory position of gastrostomy tube
== END 2017-02-11 15:00 | disposition home or self-care (01) ==
LOC: EMR 13:01
DX: K94.23 Gastrostomy malfunction (principal); Y83.3 Surgical operation with formation of external stoma as the cause of abnormal reaction of the patient, or of later complication, without mention of misadventure at the time of the procedure; Y92.019 Unspecified place in single-family (private) house as the place of occurrence of the external cause; G30.9 Alzheimer's disease, unspecified; F02.80 Dementia in other diseases classified elsewhere, unspecified severity, without behavioral disturbance, psychotic disturbance, mood disturbance, and anxiety; G20 Parkinson's disease; I10 Essential (primary) hypertension; Z89.202 Acquired absence of left upper limb, unspecified level
CPT/HCPCS: 43760; 74000; 99283; Q9963